=== PATIENT | female | born 1950 | race Caucasian/White ===

== ENCOUNTER → 2017-04-02 | Outpatient (CLI) | payer MEDICARE ==
--- NOTE | 2017-04-02 08:59 | BD ---
EXAMINATION TYPE: MG DEXA axial skeleton. DATE OF EXAM: 04/02/2017 COMPARISON: NONE CLINICAL HISTORY: 66-year-old female asymptomatic postmenopausal screening Height: 67.2 IN Weight: 201 LBS FRAX RISK QUESTIONS: Alcohol (3 or more units per day): NO Family History (Parent hip fracture): NO Glucocorticoids (More than 3mos): NO (Ex: prednisone, prednisolone, methylprednisolone, dexamethasone, and hydrocortisone). History of Fracture in Adulthood: NO Secondary Osteoporosis: 1. Type 1 Diabetes: NO 2. Hyperthyroidism: NO 3. Menopause before 45: NO 4. Malnutrition: NO 5. Chronic liver disease: NO Rheumatoid Arthritis: NO Current Tobacco Use: NO RISK FACTORS HISTORY OF: Active: YES Postmenopausal woman: AGE 53 MEDICATIONS: Thyroid Medications: YES Which medication: Levothyroxine How Lon YEARS Additional Medications: LEVOTHYROXINE, BLOOD PRESSURE MEDS EXAM MEASUREMENTS: Bone mineral densitometry was performed using the [employer] System. Bone mineral density as measured about the Lumbar spine is: ----- L1-L4(G/cm2): 1.249 T Score Values are as follows: ----- L2: 1.1 ----- L3: 1.2 ----- L4: 0.7 ----- L1-L4: 0.6 Bone mineral density BASELINE Bone mineral density about the R hip (g/cm2): 0.851 Bone mineral density about the L hip (g/cm2): 0.856 T Score values are as follows: -----R Neck: -1.3 -----L Neck: -1.3 -----R Total: -0.6 -----L Total: -0.2 Bone mineral density BASELINE IMPRESSION: Osteopenia (T Score between -2.5 and -1 as noted by T score values in both hips). There is slightly increased risk of fracture and the patient may be considered for treatment. Re-Scre en 2-5 years. NOTE: T-SCORE=SD OF THE YOUNG ADULT MEAN.
--- NOTE | 2017-04-03 07:27 | MM ---
Reason for exam: screening (asymptomatic). Last mammogram was performed 16 years and 4 months ago. History: Patient is postmenopausal and had first child after 29. Physical Findings: A clinical breast exam by your physician is recommended on an annual basis and results should be correlated with mammographic findings. MG 3D Screening Mammo W/Cad Bilateral CC and MLO view(s) were taken. No prior studies available for comparison. There are scattered fibroglandular densities. There is no discrete abnormality. ASSESSMENT: Negative, BI-RAD 1 RECOMMENDATION: Routine screening mammogram of both breasts in 1 year.
== END | disposition home or self-care (01) ==
LOC: RADMAMWWP 07:33
PROVIDERS: ATTEND Internal Medicine
DX: Z12.31 Encounter for screening mammogram for malignant neoplasm of breast (principal); M85.80 Other specified disorders of bone density and structure, unspecified site; Z78.0 Asymptomatic menopausal state
CPT/HCPCS: 77080; 77063; G0202

== ENCOUNTER → 2019-05-23 | Outpatient (CLI) | payer MEDICARE ==
--- NOTE | 2019-05-26 13:14 | MM ---
Reason for exam: screening (asymptomatic). Last mammogram was performed 2 years and 2 months ago. History: Patient is postmenopausal and had first child after 29. Physical Findings: A clinical breast exam by your physician is recommended on an annual basis and results should be correlated with mammographic findings. MG 3D Screening Mammo W/Cad Bilateral CC and MLO view(s) were taken. Prior study comparison: April 02, 2017, bilateral MG 3d screening mammo w/cad. December 10, 2000, bilateral screening mammogram. There are scattered fibroglandular densities. No suspicious abnormality on the left breast. Right latereal middle depth asymmetry on CC 3D 48/79. ASSESSMENT: Incomplete: need additional imaging evaluation, BI-RAD 0 RECOMMENDATION: Special view mammogram of the right breast. If lesion persists on supplemental views, image directed ultrasound is recommended. [facility] will attempt to contact patient to return for supplemental views and ultrasound if indicated.
== END ==
LOC: RADMAMWWP 07:31
PROVIDERS: ATTEND Internal Medicine
DX: Z12.31 Encounter for screening mammogram for malignant neoplasm of breast (principal); R92.8 Other abnormal and inconclusive findings on diagnostic imaging of breast
CPT/HCPCS: 77063; 77067

== ENCOUNTER → 2019-06-04 | Outpatient (CLI) | payer MEDICARE ==
--- NOTE | 2019-06-05 13:11 | MM ---
Reason for exam: additional evaluation requested from abnormal screening. Last mammogram was performed less than 1 month ago. History: Patient is postmenopausal and had first child after 29. Physical Findings: Nurse did not find any significant physical abnormalities on exam. MG 3D Work Up W/Cad RT Spot compression CC and ML view(s) were taken of the right breast. Prior study comparison: May 23, 2019, bilateral MG 3d screening mammo w/cad. April 02, 2017, bilateral MG 3d screening mammo w/cad. There are scattered fibroglandular densities. A more subtle distortion remains on compression 36/70, ultrasound for additional work up 6cm from nipple. These results were verbally communicated with the patient and result sheet given to the patient on 06/04/19. ASSESSMENT: Incomplete: need additional imaging evaluation, BI-RAD 0 RECOMMENDATION: Ultrasound of the right breast.
--- NOTE | 2019-06-05 13:12 | USB ---
Reason for exam: additional evaluation requested from abnormal screening. History: Patient is postmenopausal and had first child after 29. US Breast Workup Limited RT Right limited breast ultrasound including focal area of concern, retroareolar and axilla demonstrates no cystic or solid lesion seen. These results were verbally communicated with the patient and result sheet given to the patient on 06/04/19. ASSESSMENT: Probably benign, BI-RAD 3 RECOMMENDATION: Follow-up diagnostic mammogram of the right breast in 3 months. (3D with compression)
== END | disposition home or self-care (01) ==
LOC: RADMAMWWP 14:52
PROVIDERS: ATTEND Internal Medicine
DX: R92.8 Other abnormal and inconclusive findings on diagnostic imaging of breast (principal)
CPT/HCPCS: 77065; 76642; G0279; 77061

== ENCOUNTER → 2019-11-19 | Outpatient (CLI) | payer MEDICARE ==
--- NOTE | 2019-11-19 11:34 | MM ---
Reason for exam: follow-up at short interval from prior study. Last mammogram was performed 6 months ago. History: Patient is postmenopausal and had first child after 29. Physical Findings: Nurse did not find any significant physical abnormalities on exam. MG 3D Diag Mammo W/Cad RT CC and MLO view(s) were taken of the right breast. Prior study comparison: June 04, 2019, right breast MG 3d work up w/cad RT. May 23, 2019, bilateral MG 3d screening mammo w/cad. The breast tissue is heterogeneously dense. This may lower the sensitivity of mammography. Distortion upper outer quadrant right breast 7cm from nipple. These results were verbally communicated with the patient and result sheet given to the patient on 11/19/19. ASSESSMENT: Incomplete: need additional imaging evaluation, BI-RAD 0 RECOMMENDATION: Ultrasound of the right breast.
--- NOTE | 2019-11-19 11:37 | USB ---
Reason for exam: additional evaluation requested from abnormal screening. History: Patient is postmenopausal and had first child after 29. US Breast Limited RT Right limited breast ultrasound including focal area of concern, retroareolar and axilla demonstrates a 5 x 2 x 4mm oval, hypoechoic lesion at 10 o'clock and a 4 x 2 x 4mm oval, cystic lesion at 11 o'clock. Biopsy recommended of area of distortion on mammography recommended via 3D technology. These results were verbally communicated with the patient and result sheet given to the patient on 11/19/19. ASSESSMENT: Suspicious, BI-RAD 4 RECOMMENDATION: Stereotactic core biopsy of the right breast. (3D) Called Dr. Dutton's office with mammographic findings. PRELIMINARY REPORT CALLED AND FAXED TO DR. DUTTON ON 11/19/19.
== END | disposition home or self-care (01) ==
LOC: RADMAMWWP 07:29
PROVIDERS: ATTEND Internal Medicine
DX: R92.8 Other abnormal and inconclusive findings on diagnostic imaging of breast (principal)
CPT/HCPCS: 77065; 76642; G0279; 77061

== ENCOUNTER → 2019-12-02 | Outpatient (CLI) | payer MEDICARE ==
--- NOTE | 2019-12-02 18:56 | BD ---
EXAMINATION TYPE: Axial Bone Density DATE OF EXAM: 12/02/2019 COMPARISON: NONE CLINICAL HISTORY: Height: 67 Weight: 191.3 FRAX RISK QUESTIONS: Alcohol (3 or more units per day): no Family History (Parent hip fracture): no Glucocorticoids (More than 3mos): no (Ex: prednisone, prednisolone, methylprednisolone, dexamethasone, and hydrocortisone). History of Fracture in Adulthood: no Secondary Osteoporosis: 1. Type 1 Diabetes: no 2. Hyperthyroidism: no 3. Menopause before 45: no 4. Malnutrition: no 5. Chronic liver disease: no Rheumatoid Arthritis: no Current Tobacco Use: no RISK FACTORS HISTORY OF: Active: yes Postmenopausal woman: age 53 MEDICATIONS: blood pressure meds Thyroid Medications: levothyroxine How Lon years Additional History: EXAM MEASUREMENTS: Bone mineral densitometry was performed using the [employer] System. Bone mineral density as measured about the Lumbar spine is: ----- L1-L4(G/cm2): 1.247 T Score Values are as follows: ----- L2: 0.9 ----- L3: 1.3 ----- L4: 0.8 ----- L1-L4: 0.6 Bone mineral density has: decreased -0.3 % since study of: 04.02.2017 Bone mineral density about the R hip (g/cm2): 0.859 Bone mineral density about the L hip (g/cm2): 0.833 T Score values are as follows: -----R Neck: -1.3 -----L Neck: -1.5 -----R Total: -0.3 -----L Total: -0.7 Bone mineral density has: decreased -1.6 % since study of: 04.02.2017 IMPRESSION: Osteopenia (T Score between -2.5 and -1). There is slightly increased risk of fracture and the patient may be considered for treatment. Re-Screen 2-5 years. NOTE: T-SCORE=SD OF THE YOUNG ADULT MEAN.
== END | disposition home or self-care (01) ==
LOC: RADBDWWP 07:48
PROVIDERS: ATTEND Internal Medicine
DX: M85.80 Other specified disorders of bone density and structure, unspecified site (principal)
CPT/HCPCS: 77080

== ENCOUNTER 2019-12-10 14:18 | Inpatient (IN) | payer MEDICARE ==
[2019-12-10] MEDS ORDERED: ASPIRIN 81 MG PO STA (14:31)
--- NOTE | 2019-12-10 14:33 | ED ---
Chest Pain HPI <Franco Davidson - Last Filed: 12/10/19 14:48> - General Source: patient, RN notes reviewed Mode of arrival: ambulatory Limitations: no limitations <Isaias Araujo - Last Filed: 12/10/19 14:50> - General Chief Complaint: Chest Pain Stated Complaint: Chest pain Time Seen by Provider: 12/10/19 14:24 - History of Present Illness Initial Comments: 69-year-old female presents emergency Department with chief complaint of intermittent chest pain or shortness of breath. Patient states she's been having episodes where she gets substernal chest pain he comes of a tingly all over and short of breath. She states that the episode today lasted 45 minutes. Patient contacted her primary care physician Dr. Grande who recommended come emergency department to rule out PE. Patient has no history DVT or PE no leg pain no leg swelling. Denies any current symptoms including chest pain or short ness of breath but she's been having more frequent episodes. Patient denies any fever, Chills no cough or chest congestion. She does have a history of hypertension. (Isaias Araujo) - Related Data Previous Rx's Medication Instructions Recorded Ondansetron [Zofran ODT] 4 mg PO Q8HR #12 tab 10/10/15 Allergies Allergy/AdvReac Type Severity Reaction Status Date / Time No Known Allergies Allergy Verified 12/10/19 14:20 Review of Systems ROS Other: All systems not noted in ROS Statement are negative. <Franco Davidson - Last Filed: 12/10/19 14:48> ROS Other: All systems not noted in ROS Statement are negative. <Isaias Araujo - Last Filed: 12/10/19 14:50> ROS Statement: Those systems with pertinent positive or pertinent negative responses have been documented in the HPI. EKG Findings - EKG Comments: EKG Findings:: EKG performed at 14:33 showing acute MA with elevation in V1 and V2 with inferior reciprocal T-wave inversion rate of 77 MD 160 QRS 90 QT status QTC 460/520 <Isaias Araujo - Last Filed: 12/10/19 14:50> Past Medical History Past Medical History: Hypertension, Thyroid Disorder History of Any Multi-Drug Resistant Organisms: None Reported Past Surgical History: Appendectomy, Section Additional Past Surgical History / Comment(s): BOWEL OBSTRUCTION Past Psychological History: No Psychological Hx Reported Smoking Status: Never smoker Past Alcohol Use History: Occasional Past Drug Use History: None Reported <Isaias Araujo - Last Filed: 12/10/19 14:50> General Exam Limitations: no limitations General appearance: alert, in no apparent distress Head exam: Present: atraumatic, normocephalic, normal inspection Eye exam: Present: normal appearance, PERRL, EOMI. Absent: scleral icterus, conjunctival injection, periorbital swelling ENT exam: Present: normal exam, normal oropharynx, mucous membranes moist Neck exam: Present: normal inspection, full ROM. Absent: tenderness, meningismus, lymphadenopathy Respiratory exam: Present: normal lung sounds bilaterally. Absent: respiratory distress, wheezes, rales, rhonchi, stridor Cardiovascular Exam: Present: regular rate, normal rhythm, normal heart sounds. Absent: systolic murmur, diastolic murmur, rubs, gallop, clicks GI/Abdominal exam: Present: soft, normal bowel sounds. Absent: distended, tenderness, guarding, rebound, rigid Back exam: Absent: CVA tenderness (R), CVA tenderness (L) Neurological exam: Present: alert, oriented X3 Skin exam: Present: warm, dry, intact, normal color. Absent: rash <Isaias Araujo - Last Filed: 12/10/19 14:50> Course Vital Signs 12/10/19 14:21 Temperature 97.9 F Pulse Rate 86 Respiratory 16 Rate Blood Pressure 121/83 O2 Sat by Pulse 99 Oximetry Chest Pain [place] <Franco Davidson - Last Filed: 12/10/19 14:48> - [place] IEmmanuel, personally saw and examined the patient. I have reviewed and agree with the PA findings, including all diagnostic interpretations and treatment plans as written unless otherwise stated. I was present for the [place] portions of any procedures performed and the inclusive time noted for any critical care statement. I spoke with Dr. Buenrostro he agreed the patient needed to go to [facility] make those a rrangements immediately (Franco Davidson) Critical Care Time Critical Care Time: Yes Total Critical Care Time: 35 <Isaias Araujo - Last Filed: 12/10/19 14:50> Critical Care Time: Total 30 minutes of critical care time initially evaluated . Past medical history, according labs, EKG EKG showed evidence of acute MA. STEMI was paged at this time case discussed with Dr. Buenrostro in which the patient will be taken to the [facility]. Patient was started on heparin, aspirin, nitro and Lipitor. (Isaias Araujo) Disposition <Franco Davidson - Last Filed: 12/10/19 14:48> <Isaias Araujo - Last Filed: 12/10/19 14:50> Clinical Impression: ST elevation myocardial infarction (STEMI) Disposition: ADMITTED IP TO THIS HOSP Condition: Serious
[2019-12-10] MEDS ORDERED: HEPARIN SODIUM,PORCINE 5,000 UNIT/ML 1 ML VIAL IV PRN (14:39)
[2019-12-10] MEDS ORDERED: ATORVASTATIN 80 MG TAB PO STA (14:39)
[2019-12-10] MEDS ORDERED: HEPARIN SODIUM,PORCINE 5,000 UNIT/ML 1 ML VIAL IV ONE (14:39)
[2019-12-10] MEDS ORDERED: NITROGLYCERIN SL TABS 0.4 MG TAB SUBLINGUAL PRN ×2 (14:40→16:08)
[2019-12-10] MEDS ORDERED: NITROGLYCERIN OINT 1 INCH/GM PACKET TOPICAL STA (14:43)
[2019-12-10] MEDS ORDERED: HEPARIN SOD,PORK IN 0.45% NACL 25,000 UNIT in 0.45% NACL 1 250ML.BAG IV SCH (14:45)
[2019-12-10] MEDS ORDERED: LIDOCAINE 1% INJ 10MG/ML (20 ML MDV) ONE (14:52)
[2019-12-10 14:58] LABS: Basophils # (A) 0.1 k/uL (0-0.2); Basophils % (A) 1 %; Eosinophils # (A) 0.2 k/uL (0-0.7); Eosinophils % (A) 2 %; HCT 44.4 % (34.0-46.0); HGB 15.2 gm/dL (11.4-16.0); Lymphocytes # (A) 1.5 k/uL (1.0-4.8); Lymphocytes % (A) 15 %; MCHC 34.2 g/dL (31.0-37.0); MCV 87.9 fL (80.0-100.0); Monocytes # (A) 0.5 k/uL (0-1.0); Monocytes % (A) 5 %; Neutrophils # (A) 7.5 k/uL (1.3-7.7); Neutrophils % (A) 77 %; Platelet Count 258 k/uL (150-450); RBC 5.05 m/uL (3.80-5.40); WBC 9.7 k/uL (3.8-10.6)
[2019-12-10] MEDS ORDERED: IV FLUID CONTINUATION 1,000 ML IV ONE (15:02)
[2019-12-10 15:07] LABS: Albumin 4.3 g/dL (3.5-5.0); Calcium 9.7 mg/dL (8.4-10.2); Magnesium 1.8 mg/dL (1.6-2.3); Potassium 3.7 mmol/L (3.5-5.1); Total Bilirubin 1.6 mg/dL (0.2-1.3); Total Protein 7.3 g/dL (6.3-8.2)
[2019-12-10] MEDS ORDERED: MIDAZOLAM 2 MG/2 ML VIAL IVP ONE (15:13)
[2019-12-10] MEDS ORDERED: LIDOCAINE 1% INJ 10MG/ML (20 ML MDV) SQ ONE (15:14)
[2019-12-10] MEDS ORDERED: fentaNYL (PF) 50 MCG/ML 2 ML AMP ONE (15:15)
[2019-12-10] MEDS ORDERED: fentaNYL (PF) 50 MCG/ML 2 ML AMP IVP ONE (15:16)
[2019-12-10 15:20] LABS: D-Dimer 0.65 mg/L FEU (<0.60); INR 0.9 (<1.2); Partial Thromboplastin Time 22.4 sec (22.0-30.0); Prothrombin Time 9.7 sec (9.0-12.0)
[2019-12-10] MEDS ORDERED: BIVALIRUDIN BOLUS 250 MG/50 ML IV ONE (15:20)
[2019-12-10] MEDS ORDERED: CLOPIDOGREL 75 MG TAB ONE (15:20)
[2019-12-10] MEDS ORDERED: BIVALIRUDIN 250 MG in SODIUM CHLORIDE 0.9% 50 ML IV ONE (15:21)
[2019-12-10] MEDS ORDERED: CLOPIDOGREL 75 MG TAB PO ONE (15:22)
[2019-12-10 15:29] LABS: Creatine Kinase MB 22.9 ng/mL (0.0-2.4)
[2019-12-10 15:36] LABS: Troponin I 8.23 ng/mL (0.000-0.034)
[2019-12-10] MEDS ORDERED: IOPAMIDOL-370 100ML BTL INJ ONE (15:42)
[2019-12-10] MEDS ORDERED: ZOLPIDEM 5 MG TAB PO PRN (16:08)
[2019-12-10] MEDS ORDERED: MAG HYDROX/AL HYDROX/SIMETH 30 ML CUP PO PRN (16:08)
[2019-12-10] MEDS ORDERED: RX INFO: IV CONTRAST WAS GIVEN 1 EACH MISC MISCELLANE PRN (16:08)
[2019-12-10] MEDS ORDERED: ATROPINE SULFATE 0.1 MG/ML 10ML SYRINGE IV PRN (16:08)
--- NOTE | 2019-12-10 16:14 | P.CRDCN ---
History of Present Illness Consult date: 12/10/19 Chief complaint: Chest pain History of present illness: This is a very pleasant 69-year-old female patient with a past medical history significant for hypertension presented to the emergency department complaining of chest discomfort. She was in her usual state of health at about 3 days ago when she started experiencing chest discomfort intermittently. She describes her discomfort as a pressure across the chest without any radiation to the arms or neck or shoulders, but it was associated with shortness of breath. No sweating. No dizziness or lightheadedness or syncope. The last episode was earlier today which was more intense and because of that she decided to come to the emergency department. The EKG in the ER revealed sinus rhythm with ST segment elevation in the anteroseptal leads. Because of that an emergent heart catheterization was advised. 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 She underwent successful stenting of the ostial and proximal LAD with an excellent angiographic results and reduction of stenosis from 99% to 0% and without any complication. The patient tolerated the procedure very well. She was chest pain-free by the end of the procedure. She will be admitted to the intensive c are unit and she will be on dual antiplatelet therapy along with high intensity statin. She will be also on anti-ischemic medication on an echocardiogram will be ordered for tomorrow. Past Medical History Past Medical History: Hypertension, Thyroid Disorder History of Any Multi-Drug Resistant Organisms: None Reported Past Surgical History: Appendectomy, Section Additional Past Surgical History / Comment(s): BOWEL OBSTRUCTION Past Psychological History: No Psychological Hx Reported Smoking Status: Never smoker Past Alcohol Use History: Occasional Past Drug Use History: None Reported Medications and Allergies Home Medications Medication Instructions Recorded Confirmed Type Levothyroxine Sodium [Synthroid] 125 mcg PO SUTUWETHSA 12/10/19 12/10/19 History Levothyroxine Sodium [Synthroid] 187.5 mcg PO MOFR 12/10/19 12/10/19 History Triamterene-Hctz 37.5-25Mg 1 tab PO DAILY 12/10/19 12/10/19 History [Maxzide 37.5-25] amLODIPine [Norvasc] 10 mg PO DAILY 12/10/19 12/10/19 History Allergies Allergy/AdvReac Type Severity Reaction Status Date / Time No Known Allergies Allergy Verified 12/10/19 15:01 Physical Exam Vitals: Vital Signs Temp Pulse Resp BP Pulse Ox 12/10/19 14:50 94 18 141/70 98 12/10/19 14:40 98 12/10/19 14:21 97.9 F 86 16 121/83 99 Intake and Output 12/10/19 12/10/19 12/10/19 06:59 14:59 22:59 Intake Total 123 Balance 123 Intake: IV 123 Other: Weight 81.647 kg - Constitutional General appearance: no acute distress - Respiratory Respiratory: bilateral: diminished - Cardiovascular Rhythm: regular Heart sounds: normal: S1, S2 Results 12/10/19 14:42 12/10/19 14:42 Cardiac Enzymes 12/10/19 12/10/19 Range/Units 14:42 14:42 AST 82 H (14-36) U/L CK-MB (CK-2) 22.9 H (0.0-2.4) ng/mL Troponin I 8.230 H* (0.000-0.034) ng/mL Coagulation 12/10/19 Range/Units 14:42 PT 9.7 (9.0-12.0) sec APTT 22.4 (22.0-30.0) sec CBC 12/10/19 Range/Units 14:42 WBC 9.7 (3.8-10.6) k/uL RBC 5.05 (3.80-5.40) m/uL Hgb 15.2 (11.4-16.0) gm/dL Hct 44.4 (34.0-46.0) % Plt Count 258 (150-450) k/uL Comprehensive Metabolic Panel 12/10/19 Range/Units 14:42 Sodium 136 L (137-145) mmol/L Potassium 3.7 (3.5-5.1) mmol/L Chloride 99 (98-107) mmol/L Carbon Dioxide 27 (22-30) mmol/L BUN 22 H (7-17) mg/dL Creatinine 0.79 (0.52-1.04) mg/dL Glucose 180 H (74-99) mg/dL Calcium 9.7 (8.4-10.2) mg/dL AST 82 H (14-36) U/L ALT 22 (4-34) U/L Alkaline Phosphatase 65 (38-126) U/L Total Protein 7.3 (6.3-8.2) g/dL Albumin 4.3 (3.5-5.0) g/dL Current Medications Generic Name Dose Route Start Last Admin Trade Name Freq PRN Reason Stop Dose Admin Al Hydroxide/Mg Hydroxide 30 ml 12/10/19 16:08 Maalox PO Q4HR PRN Heartburn Aspirin 325 mg 12/11/19 09:00 Aspirin PO DAILY [facility] Atorvastatin Calcium 80 mg 12/10/19 21:00 Lipitor PO HS [facility] Atropine Sulfate 0.5 mg 12/10/19 16:08 Atropine IV ONCE PRN Symptomatic Bradycardia Clopidogrel Bisulfate 75 mg 12/11/19 16:09 Plavix PO DAILY [facility] Heparin Sodium (Porcine) 0 unit 12/10/19 14:39 Heparin IV PER PROTOCOL PRN Low PTT Protocol Heparin Sodium/Sodium Chloride 250 mls @ 9.798 mls/hr 12/10/19 14:45 25,000 unit/ Sodium Chloride IV .Q24H [facility] Protocol 12 UNITS/KG/HR Sodium Chloride 1,000 mls @ 75 mls/hr 12/10/19 16:15 Saline 0.9% IV 12/10/19 22:16 .[id number] [facility] Lisinopril 2.5 mg 12/11/19 09:00 Zestril PO DAILY [facility] Metoprolol Tartrate 12.5 mg 12/10/19 21:00 Lopressor PO BID [facility] Miscellaneous Information 1 each 12/10/19 16:08 Rx Info: Iv Contrast Was Given MISCELLANE 12/12/19 16:08 DAILY PRN Per Protocol Nitroglycerin 0.4 mg 12/10/19 14:40 Nitrostat SUBLINGUAL Q5M PRN Chest Pain Nitroglycerin 0.4 mg 12/10/19 16:08 Nitrostat SUBLINGUAL Q5M PRN Chest Pain Zolpidem Tartrate 5 mg 12/10/19 16:08 Ambien PO HS PRN Insomnia Intake and Output 12/10/19 12/10/19 12/10/19 06:59 14:59 22:59 Intake Total 123 Balance 123 Intake: IV 123 Other: Weight 81.647 kg Patient Weight 12/11/19 06:59 Weight 81.647 kg 12/10/19 14:42 12/10/19 14:42 Assessment and Plan Assessment: Assessment #[address] patient myocardial infarction #2 hypertension Plan #1 the patient underwent successful stenting of the ostial and proximal LAD #2 she will be on dual antiplatelet therapy along with high intensity statin #3 anti-ischemic medication including metoprolol as well as lisinopril #4 an echocardiogram was Doppler #5 ICU admission #6 standard to groin care #7 monitor for arrhythmia #8 follow-up with the patient Thank you for allowing us participate in her care and we'll continue following up with the patient
[2019-12-10 16:15] LABS: Glucose,Whole Blood 152 mg/dL (75-99)
[2019-12-10] MEDS ORDERED: SODIUM CHLORIDE 0.9% 1,000 ML IV SCH (16:15)
[2019-12-10] MEDS ORDERED: NALOXONE 0.4 MG/ML 1 ML VIAL IV PRN (17:44)
[2019-12-10] MEDS ORDERED: ONDANSETRON 4 MG/2 ML VIAL IVP PRN (17:44)
[2019-12-10] MEDS ORDERED: ACETAMINOPHEN TAB 325 MG TAB PO PRN (17:44)
[2019-12-10] MEDS ORDERED: bisacodyL 5 MG TABLET.DR PO PRN (17:44)
[2019-12-10] MEDS ORDERED: MELATONIN 3 MG TABLET PO PRN (17:44)
--- NOTE | 2019-12-10 17:44 | P.HPIM ---
History of Present Illness H&P Date: 12/10/19 Chief Complaint: Chest Patient is a 69-year-old female with a past medical history of high blood pressure, hypothyroidism, and obesity who presented to the hospital at direction of her primary care physician due to numbness and tingling in her arm and shortness of breath. On arrival to the ER she was noted to have ST segment elevation and a code STEMI was called. She was taken directly from the ER to the laborer pole crew and underwent successful stenting of critical lesion in the LAD. She was noted to have a troponin of 8, her laboratory analysis was otherwise unremarkable. She was started on aspirin, Plavix, lisinopril, and Lipitor. She is admitted to the ICU for further monitoring. Patient seen and examined at bedside. She reports that she went for a breast biopsy on 12/03 secondary to an abnormal mammogram. While there she had a syncopal episode. Later on she developed some left-sided chest pain associated with numbness and tingling into her left arm. Since that time she has had maybe 1-2 other incidents. Today she was out in the yard working, and taking the trash cans to the street. When she returned back and side she felt winded, had numbness and tingling down into her left arm and now this time up into her jaw and face. This was associated with some diaphoresis. She called her primary care physician who told her to proceed to the emergency department. She reports that her father had history of coronary artery disease past away at age 68 and for started having heart problems in his 40s. Her mother also had a history of heart disease and was hospitalized once for heart related concerns. Review of Systems Pertinent positives and negatives as discussed in HPI, a complete review of systems was performed and all other systems are negative. Past Medical History Past Medical History: Hypertension, Thyroid Disorder History of Any Multi-Drug Resistant Organisms: None Reported Past Surgical History: Appendectomy, Section Additional Past Surgical History / Comment(s): BOWEL RESSECTION WITH APPENDICITIS Past Psychological History: No Psychological Hx Reported Smoking Status: Former smoker Past Alcohol Use History: Occasional Past Drug Use History: None Reported Additional History: No cane or walker. 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 - Past Family History Father Family Medical History: Coronary Artery Disease (CAD) Mother Additional Family Medical History / Comment(s): heart disease Medications and Allergies Home Medications Medication Instructions Recorded Confirmed Type Levothyroxine Sodium [Synthroid] 125 mcg PO MOTUWETHFR 12/10/19 12/10/19 History Levothyroxine Sodium [Synthroid] 187.5 mcg PO SUSA 12/10/19 12/10/19 History Triamterene-Hctz 37.5-25Mg 1 tab PO DAILY 12/10/19 12/10/19 History [Maxzide 37.5-25] amLODIPine [Norvasc] 10 mg PO DAILY 12/10/19 12/10/19 History Allergies Allergy/AdvReac Type Severity Reaction Status Date / Time No Known Allergies Allergy Verified 12/10/19 15:01 Physical Exam Osteopathic Statement: *. No significant issues noted on an osteopathic structural exam other than those noted in the History and Physical/Consult. Vitals: Vital Signs Temp Pulse Resp BP Pulse Ox 12/10/19 16:06 98.3 F 71 16 124/67 95 12/10/19 14:50 94 18 141/70 98 12/10/19 14:40 98 12/10/19 14:21 97.9 F 86 16 121/83 99 Intake and Output 12/10/19 12/10/19 12/10/19 06:59 14:59 22:59 Intake Total 198 Output Total 0 Balance 198 Intake: IV 198 Sodium Chloride 0.9% 1, 75 000 ml @ 75 mls/hr IV . [id number] [facility] Rx#:[id number] Output: Urine 0 Other: # Voids 0 Weight 81.647 kg General: non toxic, no distress, appears at stated age, Obese Derm: no unusual rashes/lesions no unusual ecchymoses, warm, dry Head: atraumatic, normocephalic, symmetric Eyes: EOMI, no lid lag, anicteric sclera, pupils equal round reactive to light ENT: Nose and ears atraumatic, no thrush, no pharyngeal erythema Neck: No thyromegaly, no cervical lymphadenopathy, trachea midline, supple Mouth: no lip lesion, mucus membranes moist Cardiovascular: S1S2 reg, no murmur, positive posterior tibial pulse bilateral, no edema, capillary refill less than 2 seconds Lungs: CTA bilateral, no rhonchi, no rales , no accessory muscle use Abdominal: soft, nontender to palpation, no guarding, no appreciable organomegaly, normal bowel sounds Ext: no gross muscle atrophy, muscle strength 5 out of 5 in upper extremities grossly, no contractures, Neuro: CN II-XI grossly intact, light touch intact all 4 extremities, finger to nose within normal limits, Psych: Alert, oriented, appropriate affect Results CBC & Chem 7: 12/10/19 14:42 12/10/19 14:42 Labs: Abnormal Lab Results - Last 24 Hours (Table) 12/10/19 12/10/19 12/10/19 Range/Units 14:42 14:42 14:42 D-Dimer 0.65 H (<0.60) mg/L FEU Sodium 136 L (137-145) mmol/L BUN 22 H (7-17) mg/dL Glucose 180 H (74-99) mg/dL POC Glucose (mg/dL) (75-99) mg/dL Total Bilirubin 1.6 H (0.2-1.3) mg/dL AST 82 H (14-36) U/L Total Creatine Kinase 383 H (30-135) U/L CK-MB (CK-2) 22.9 H (0.0-2.4) ng/mL Troponin I 8.230 H* (0.000-0.034) ng/mL 12/10/19 Range/Units 16:12 D-Dimer (<0.60) mg/L FEU Sodium (137-145) mmol/L BUN (7-17) mg/dL Glucose (74-99) mg/dL POC Glucose (mg/dL) 152 H (75-99) mg/dL Total Bilirubin (0.2-1.3) mg/dL AST (14-36) U/L Total Creatine Kinase (30-135) U/L CK-MB (CK-2) (0.0-2.4) ng/mL Troponin I (0.000-0.034) ng/mL Chest x-ray: report reviewed Thrombosis Risk Factor Assmnt - DVT/VTE Prophylaxis DVT/VTE Prophylaxis: Mechanical Prophylaxis ordered - Choose All That Apply Each Factor Represents 1 point: Acute [place], Obesity (BMI >25) Each Risk Factor Represents 2 Points: Age 61-74 years Thrombosis Risk Factor Assessment Total Risk Factor Score: 4 Thrombosis Risk Factor Assessment Level: Moderate Risk Assessment and Plan Assessment: Acute ST segment elevated myocardial infarction status post successful stenting of the LAD -Aspirin, Lipitor, Plavix, lisinopril, Lopressor -Echo in a.m. -Telemetry -Cardiology recommendations -Check lipid profile in a.m. Hypertension, controlled -Continue with lisinopril and Lopressor -Hold home triamterene hydrochlorothiazide and Norvasc -Follow blood pressures Hypothyroidism -Synthroid Obesity with BMI 28.2 -Outpatient structured weight loss The patient is admitted with an anticipated greater than 2 midnight stay for evaluation of STEMI. Surrogate decision-maker: CODE STATUS:Full DVT prophylaxis: SCDs Discussed with: Patient, nursing, Anticipated discharge date: 2-[address]: Home A total of 65 minutes was spent on the care of this complex patient more than 50% of the time was spent in counseling and care coordination.
[2019-12-10] MEDS: METOPROLOL TARTRATE 12.5 MG TAB PO SCH (19:54)
--- NOTE | 2019-12-10 22:42 | CC ---
CARDIAC CATHETERIZATION REPORT DATE OF SERVICE: 12/10/2019 PERFORMING PHYSICIAN: Gadiel Buenrostro M.D. PROCEDURES PERFORMED: 1. Selective right and left coronary angiogram. 2. Successful stenting of the ostial and proximal left anterior descending artery using a 2.5 x 15 mm Xience drug-eluting stent with an excellent angiographic result and reduction of stenosis from 99% to 0%. 3. Left heart catheterization. INDICATION: This is a 69-year-old female patient with hypertension who presented to the hospital with chest discomfort that was intermittent for the last few days. The EKG showed concerning finding of acute ST-elevation myocardial infarction in the anteroseptal leads. As a matter of fact, the patient does have also what seems to be QS pattern on the EKG. APPROACH: Right common femoral artery. COMPLICATIONS: None. LEVEL OF SEDATION: Moderate, with sedation length of 25 minutes. PROCEDURE DESCRIPTION: After obtaining informed consent, the patient was brought to the cardiac sleep lab technologist. The right common femoral artery was cannulated using micropuncture technique. The micropuncture wire passed easily. Then I placed a 6-Hungarian sheath. I did selective right and left coronary angiogram using JR4 and JL4 catheters. I did selective left coronary angiogram using JL4 guide. I did after that intervene on the LAD. Please see separate paragraph for that. Subsequently left heart catheterization was performed using 6-Hungarian pigtail catheter. The procedure was completed without any complication. SELECTIVE CORONARY ANGIOGRAM: 1. The right coronary artery is a large-caliber vessel and it is a dominant vessel. The RCA is angiographically normal. The RCA distally bifurcates into PDA and PLV branches, and both appeared to be angiographically normal. 2. The left main is angiographically normal. It bifurcates into LCX and LAD. 3. The LCX is a large-caliber vessel and it is a nondominant vessel. The proximal LCX is angiographically normal and gives rise to a large first obtuse marginal branch which trifurcates into 3 sub branches, and all appeared to be angiographically normal. The left circumflex continues after that as a small-caliber vessel in the AV groove. 4. The LAD. The ostial LAD right from the left main has a lesion that appeared to be in the range of 99.9%. The mid and distal LAD appeared to be angiographically normal. PERCUTANEOUS CORONARY INTERVENTION OF THE LEFT ANTERIOR DESCENDING CORONARY ARTERY: Anticoagulation was initiated using Angiomax. Subsequently I did engage the left main using JL4 guide. I did wire the LAD using a Whisper wire. After that I did balloon angioplasty initially using a 2.0 x 12 mm balloon, but because the balloon was slipping forward, I used a 2.5 x 10 mm AngioSculpt balloon and I did I did PTCA of the ostial LAD using the balloon which was inflated under 14 atmospheres for 20 seconds. Subsequently I deployed a 2.5 x 15 mm Xience JIL where the stent was positioned under fluoroscopic guidance and deployed under 14 atmospheres for 20 seconds. The following angiogram showed excellent angiographic results and the procedure was completed without any complication. HEMODYNAMICS: The LVEDP was about 8 mmHg, and there was no gradient across the aortic valve. CONCLUSION: 1. Probably subacute ST-elevation myocardial infarction anteriorly. 2. Critical disease involving the ostial left anterior descending artery. 3. Successful stenting of the ostial and proximal LAD using 2.5 x 15 mm Xience JIL with an excellent angiographic result. 4. Mild disease involving the left circumflex coronary artery. 5. Mild disease involving the right coronary artery. 6. Normal left ventricular end-diastolic pressure. POST-PROCEDURE MANAGEMENT: 1. Dual anti-platelet therapy. 2. Risk factor modifications. 3. Follow up with the patient. MMODL / IJN: [id number] /
[2019-12-11 05:12] LABS: HCT 40.8 % (34.0-46.0); MCH 29.8 pg (25.0-35.0); MCHC 34.2 g/dL (31.0-37.0); MCV 87.2 fL (80.0-100.0); Mean Platelet Volume 7.7; Platelet Count 232 k/uL (150-450); RBC 4.68 m/uL (3.80-5.40); RDW 13.1 % (11.5-15.5); WBC 8.9 k/uL (3.8-10.6)
[2019-12-11 05:20] LABS: African American GFR (CKD) >90 (>60 ml/min/1.73 sqM); Anion Gap 5 mmol/L; Blood Urea Nitrogen 15 mg/dL (7-17); Carbon Dioxide 28 mmol/L (22-30); Chloride 104 mmol/L (98-107); Cholesterol 163 mg/dL (<200); Glucose 101 mg/dL (74-99); HDL Cholesterol 39 mg/dL (40-60); LDL Cholesterol,Calculated 89 mg/dL (0-99); Magnesium 1.9 mg/dL (1.6-2.3); Non-African American GFR(CKD) 89 (>60 ml/min/1.73 sqM); Potassium 3.8 mmol/L (3.5-5.1); Sodium 137 mmol/L (137-145); Triglycerides 175 mg/dL (<150)
[2019-12-11] MEDS ORDERED: Potassium Replacement Protocol 1 EACH MISC MISCELLANE PRN (05:32)
[2019-12-11] MEDS ORDERED: POTASSIUM CHLORIDE ER 20 MEQ TAB.ER PO SCH (06:00)
[2019-12-11] MEDS: LEVOTHYROXINE 125 MCG TAB PO SCH (06:27)
--- NOTE | 2019-12-11 07:46 | P.CRDCN ---
History of Present Illness History of present illness: Patient interviewed and examined today She came in yesterday with chest discomfort midsternal radiating to the jaw and to the left arm She was seen in the ER Dr. Emmanuel Davidson and Isaias Araujo and sent to the Band Machine Operator directly This morning the patient is doing well. She has no chest discomfort no dizziness lightheadedness did not pressure was she looks very comfortable she feels well On more questioning she started experiencing these symptoms for several weeks but these were brief minor episodes. Last week at [facility] where she is getting a breast biopsy she had a similar episode and she actually passed out at that time. This time she did not have any loss of consciousness Radio blood pressure is 100 30 45 mmHg pulse rate is 60 beats a minute afebrile 98.3F Breath sounds are clear no rhonchi no crackles Heart sounds are normal normal S1 normal S2 no murmurs or gallops no rub Breath sounds are clear no rhonchi no crackle Extremities warm no edema Impression acute anterior wall ME with an ostial LAD stenosis of 99% Mild disease of the left circumflex and RCA Hypertension She stopped smoking 30 years back Peak troponin 32 Suggest Continue dual antiplatelet therapy, aspirin 81 mg daily along with Plavix Atorvastatin 80 mg daily Beta blockers and mehnaz inhibitors I discussed this with the nurse and the patient may go up to the third floor Past Medical History Past Medical History: Hypertension, Thyroid Disorder History of Any Multi-Drug Resistant Organisms: None Reported Past Surgical History: Appendectomy, Section Additional Past Surgical History / Comment(s): BOWEL RESSECTION WITH APPENDICITIS Past Psychological History: No Psychological Hx Reported Smoking Status: Former smoker Past Alcohol Use History: Occasional Past Drug Use History: None Reported - Past Family History Father Family Medical History: Coronary Artery Disease (CAD) Mother Additional Family Medical History / Comment(s): heart disease Medications and Allergies Home Medications Medication Instructions Recorded Confirmed Type Levothyroxine Sodium [Synthroid] 125 mcg PO MOTUWETHFR 12/10/19 12/10/19 History Levothyroxine Sodium [Synthroid] 187.5 mcg PO SUSA 12/10/19 12/10/19 History Triamterene-Hctz 37.5-25Mg 1 tab PO DAILY 12/10/19 12/10/19 History [Maxzide 37.5-25] amLODIPine [Norvasc] 10 mg PO DAILY 12/10/19 12/10/19 History Allergies Allergy/AdvReac Type Severity Reaction Status Date / Time No Known Allergies Allergy Verified 12/10/19 15:01 Physical Exam Vitals: Vital Signs Temp Pulse Resp BP Pulse Ox 12/11/19 07:00 66 15 115/52 93 L 12/11/19 06:00 66 15 106/49 92 L 12/11/19 05:00 61 14 98/48 94 L 12/11/19 04:00 98.3 F 62 19 103/45 94 L 12/11/19 03:00 64 18 106/64 94 L 12/11/19 02:00 66 20 108/57 94 L 12/11/19 01:00 63 14 107/56 91 L 12/11/19 00:00 98.5 F 65 18 120/65 94 L 12/10/19 23:00 68 18 116/55 96 12/10/19 22:00 68 15 115/60 95 12/10/19 21:00 64 20 125/60 96 12/10/19 20:00 98.6 F 71 16 125/60 98 12/10/19 19:00 73 14 116/69 96 12/10/19 18:00 69 14 127/80 97 12/10/19 17:00 83 24 128/64 96 12/10/19 16:06 98.3 F 71 16 124/67 95 12/10/19 14:50 94 18 141/70 98 12/10/19 14:40 96 12/10/19 14:21 97.9 F 86 16 121/83 99 Intake and Output 12/10/19 12/11/19 12/11/19 22:59 06:59 14:59 Intake Total 648 150 Output Total 0 600 0 Balance 648 -450 0 Intake: IV 648 150 Sodium Chloride 0.9% 1, 525 150 000 ml @ 75 mls/hr IV . [id number] [facility] Rx#:[id number] Output: Urine 0 600 0 Other: # Voids 0 1 Weight 83.9 kg Results 12/11/19 04:48 12/11/19 04:36 Cardiac Enzymes 12/10/19 12/10/19 12/10/19 Range/Units 14:42 14:42 17:59 AST 82 H (14-36) U/L CK-MB (CK-2) 22.9 H (0.0-2.4) ng/mL Troponin I 8.230 H* 30.600 H* (0.000-0.034) ng/mL 12/10/19 Range/Units 20:41 AST (14-36) U/L CK-MB (CK-2) (0.0-2.4) ng/mL Troponin I 32.600 H* (0.000-0.034) ng/mL Coagulation 12/10/19 Range/Units 14:42 PT 9.7 (9.0-12.0) sec APTT 22.4 (22.0-30.0) sec Lipids 12/11/19 Range/Units 04:36 Triglycerides 175 H (<150) mg/dL Cholesterol 163 (<200) mg/dL HDL Cholesterol 39 L (40-60) mg/dL CBC 12/10/19 12/11/19 Range/Units 14:42 04:48 WBC 9.7 8.9 (3.8-10.6) k/uL RBC 5.05 4.68 (3.80-5.40) m/uL Hgb 15.2 14.0 (11.4-16.0) gm/dL Hct 44.4 40.8 (34.0-46.0) % Plt Count 258 232 (150-450) k/uL Comprehensive Metabolic Panel 12/10/19 12/11/19 Range/Units 14:42 04:36 Sodium 136 L 137 (137-145) mmol/L Potassium 3.7 3.8 (3.5-5.1) mmol/L Chloride 99 104 (98-107) mmol/L Carbon Dioxide 27 28 (22-30) mmol/L BUN 22 H 15 (7-17) mg/dL Creatinine 0.79 0.68 (0.52-1.04) mg/dL Glucose 180 H 101 H (74-99) mg/dL Calcium 9.7 9.0 (8.4-10.2) mg/dL AST 82 H (14-36) U/L ALT 22 (4-34) U/L Alkaline Phosphatase 65 (38-126) U/L Total Protein 7.3 (6.3-8.2) g/dL Albumin 4.3 (3.5-5.0) g/dL Current Medications Generic Name Dose Route Start Last Admin Trade Name Freq PRN Reason Stop Dose Admin Acetaminophen 650 mg 12/10/19 17:44 Tylenol Tab PO Q6HR PRN Mild Pain or Fever > 100.5 Al Hydroxide/Mg Hydroxide 30 ml 12/10/19 16:08 Maalox PO Q4HR PRN Heartburn Aspirin 81 mg 12/11/19 09:00 Aspirin PO DAILY [facility] Atorvastatin Calcium 80 mg 12/11/19 21:00 Lipitor PO HS [facility] Atropine Sulfate 0.5 mg 12/10/19 16:08 Atropine IV ONCE PRN Symptomatic Bradycardia Bisacodyl 5 mg 12/10/19 17:44 Dulcolax PO DAILY PRN Constipation Clopidogrel Bisulfate 75 mg 12/11/19 09:00 Plavix PO DAILY [facility] Heparin Sodium (Porcine) 0 unit 12/10/19 14:39 Heparin IV PER PROTOCOL PRN Low PTT Protocol Levothyroxine Sodium 125 mcg 12/11/19 06:30 12/11/19 06:27 Synthroid PO 125 mcg [email or web address] [facility] Administration Levothyroxine Sodium 187.5 mcg 12/13/19 06:30 Synthroid PO [email or web address] [facility] Lisinopril 2.5 mg 12/11/19 12:00 Zestril PO DAILY@1200 [facility] Melatonin 3 mg 12/10/19 17:44 Melatonin PO HS PRN Insomnia Metoprolol Tartrate 12.5 mg 12/10/19 21:00 12/10/19 19:54 Lopressor PO 12.5 mg BID DEBBIE Administration Miscellaneous Information 1 each 12/10/19 16:08 Rx Info: Iv Contrast Was Given MISCELLANE 12/12/19 16:08 DAILY PRN Per Protocol Miscellaneous Information 1 each 12/11/19 05:32 Potassium Per Protocol MISCELLANE DAILY PRN Per Protocol Protocol Naloxone HCl 0.2 mg 12/10/19 17:44 Narcan IV Q2M PRN Opioid Reversal Nitroglycerin 0.4 mg 12/10/19 14:40 Nitrostat SUBLINGUAL Q5M PRN Chest Pain Ondansetron HCl 4 mg 12/10/19 17:44 Zofran IVP Q8HR PRN Nausea And Vomiting Zolpidem Tartrate 5 mg 12/10/19 16:08 Ambien PO HS PRN Insomnia Intake and Output 12/10/19 12/11/19 12/11/19 22:59 06:59 14:59 Intake Total 648 150 Output Total 0 600 0 Balance 648 -450 0 Intake: IV 648 150 Sodium Chloride 0.9% 1, 525 150 000 ml @ 75 mls/hr IV . [id number] [facility] Rx#:[id number] Output: Urine 0 600 0 Other: # Voids 0 1 Weight 83.9 kg 12/11/19 04:48 12/11/19 04:36
[2019-12-11] MEDS: ASPIRIN 81 MG PO SCH (08:42)
[2019-12-11] MEDS: CLOPIDOGREL 75 MG TAB PO SCH (08:42)
[2019-12-11] MEDS: METOPROLOL TARTRATE 12.5 MG TAB PO SCH ×2 (08:42→19:57)
[2019-12-11] MEDS ORDERED: ASPIRIN 325 MG TAB PO SCH (09:00)
--- NOTE | 2019-12-11 11:00 | ECHOF ---
Referral Reason:STEMI MEASUREMENTS -------- HEIGHT: 170.2 cm WEIGHT: 81.6 kg BP: 124/67 RVIDd: 2.8 cm (< 3.3) IVSd: 1.3 cm (0.6 - 1.1) LVIDd: 4.8 cm (3.9 - 5.3) LVPWd: 1.3 cm (0.6 - 1.1) IVSs: 1.7 cm LVIDs: 3.6 cm LVPWs: 1.6 cm LA Diam: 3.3 cm (2.7 - 3.8) LAESV Index (A-L): 19.77 ml/m Ao Diam: 3.0 cm (2.0 - 3.7) AV Cusp: 2.0 cm (1.5 - 2.6) MV EXCURSION: 17.701 mm (> 18.000) MV EF SLOPE: 65 mm/s (70 - 150) EPSS: 0.4 cm MV E Titi: 0.44 m/s MV DecT: 316 ms MV A Titi: 1.02 m/s MV E/A Ratio: 0.43 FINDINGS -------- Sinus rhythm. This was a technically difficult study with suboptimal apical views. The left ventricular size is normal. There is mild concentric left ventricular hypertrophy. Overa ll left ventricular systolic function is mild-moderately impaired with, an EF between 40 - 45 %. Ap ical anterior LV wall motion is hypokinetic. Apical lateral LV wall motion is hypokinetic. Apic al inferior LV wall motion is hypokinetic. Apical septum LV wall motion is hypokinetic. The right ventricle is normal in size. Normal LA size by volume 22+/-6 ml/m2. The right atrium is normal in size. Lumason used Interatrial and interventricular septum intact. The aortic valve is trileaflet and appears structurally normal. The mitral valve is normal. Mild tricuspid regurgitation present. Right ventricular systolic pressure is normal at < 35 mmHg. Trace/mild (physiologic) pulmonic regurgitation. The aortic root size is normal. Normal inferior vena cava with normal inspiratory collapse consistent with estimated right atrial pre ssure of 5 mmHg. There is no pericardial effusion. CONCLUSIONS -------- 1. Sinus rhythm. 2. This was a technically difficult study with suboptimal apical views. 3. The left ventricular size is normal. 4. There is mild concentric left ventricular hypertrophy. 5. Overall left ventricular systolic function is mild-moderately impaired with, an EF between 40 - 45 %. 6. Apical anterior LV wall motion is hypokinetic. 7. Apical lateral LV wall motion is hypokinetic. 8. Apical inferior LV wall motion is hypokinetic. 9. Apical septum LV wall motion is hypokinetic. 10. Lumason used 11. The aortic valve is trileaflet and appears structurally normal. 12. Mild tricuspid regurgitation present. 13. Right ventricular systolic pressure is normal at < 35 mmHg. 14. Trace/mild (physiologic) pulmonic regurgitation. 15. There is no pericardial effusion. SHEET MUSIC SALESPERSON: Marizol Mortensen RDCS
--- NOTE | 2019-12-11 14:09 | P.PN ---
Subjective Progress Note Date: 12/11/19 Principal diagnosis: chest pain Patient is a 69-year-old female with a past medical history of high blood pressure, hypothyroidism, and obesity who presented to the hospital at direction of her primary care physician due to numbness and tingling in her arm and shortness of breath. On arrival to the ER she was noted to have ST segment elevation and a code STEMI was called. She was taken directly from the ER to the greens laborer and underwent successful stenting of critical lesion in the LAD. She was noted to have a troponin of 8, her laboratory analysis was otherwise unremarkable. She was started on aspirin, Plavix, lisinopril, and Lipitor. She was admitted to the ICU for further monitoring. Cholesterol profile unremarkable. Echo showed EF 40-45% with LV hypokanesis. Patient seen and examined at bedside. No chest pain, SOB, nausea, or numbness an d tingling. Objective - Vital Signs Vital signs: Vital Signs Temp 97.5 F L 12/11/19 12:00 Pulse 75 12/11/19 12:00 Resp 18 12/11/19 12:00 BP 123/64 12/11/19 12:00 Pulse Ox 96 12/11/19 12:00 Intake & Output 12/10/19 12/11/19 12/11/19 18:59 06:59 18:59 Intake Total 348 450 Output Total 0 600 0 Balance 348 -150 0 Weight 81.647 kg 83.9 kg Intake: IV 348 450 Sodium Chloride 0.9% 1, 225 450 000 ml @ 75 mls/hr IV . [id number] Rx#:[id number] Output: Urine 0 600 0 Other: Voiding Method Toilet # Voids 0 1 2 ABP, PAP, CO, CI - Last Documented Arterial Blood Pressure 152/69 - Exam General: non toxic, no distress, appears at stated age Derm: warm, dry Head: atraumatic, normocephalic, symmetric Eyes: EOMI, no lid lag, anicteric sclera Mouth: no lip lesion, mucus membranes moist Cardiovascular: S1S2 reg, no murmur, positive posterior tibial pulse bilateral, Lungs: CTA bilateral, no rhonchi, no rales , no accessory muscle use Abdominal: soft, nontender to palpation, no guarding, no appreciable organomegaly Ext: no gross muscle atrophy, no edema, no contractures Neuro: CN II-XI grossly intact, no focal neuro deficits Psych: Alert, oriented, appropriate affect - Labs CBC & Chem 7: 12/11/19 04:48 12/11/19 04:36 Labs: Abnormal Lab Results - Last 24 Hours (Table) 12/10/19 12/10/19 12/10/19 Range/Units 14:42 14:42 14:42 D-Dimer 0.65 H (<0.60) mg/L FEU Sodium 136 L (137-145) mmol/L BUN 22 H (7-17) mg/dL Glucose 180 H (74-99) mg/dL POC Glucose (mg/dL) (75-99) mg/dL Total Bilirubin 1.6 H (0.2-1.3) mg/dL AST 82 H (14-36) U/L Total Creatine Kinase 383 H (30-135) U/L CK-MB (CK-2) 22.9 H (0.0-2.4) ng/mL Troponin I 8.230 H* (0.000-0.034) ng/mL Triglycerides (<150) mg/dL HDL Cholesterol (40-60) mg/dL 12/10/19 12/10/19 12/10/19 Range/Units 16:12 17:59 20:41 D-Dimer (<0.60) mg/L FEU Sodium (137-145) mmol/L BUN (7-17) mg/dL Glucose (74-99) mg/dL POC Glucose (mg/dL) 152 H (75-99) mg/dL Total Bilirubin (0.2-1.3) mg/dL AST (14-36) U/L Total Creatine Kinase (30-135) U/L CK-MB (CK-2) (0.0-2.4) ng/mL Troponin I 30.600 H* 32.600 H* (0.000-0.034) ng/mL Triglycerides (<150) mg/dL HDL Cholesterol (40-60) mg/dL 12/11/19 Range/Units 04:36 D-Dimer (<0.60) mg/L FEU Sodium (137-145) mmol/L BUN (7-17) mg/dL Glucose 101 H (74-99) mg/dL POC Glucose (mg/dL) (75-99) mg/dL Total Bilirubin (0.2-1.3) mg/dL AST (14-36) U/L Total Creatine Kinase (30-135) U/L CK-MB (CK-2) (0.0-2.4) ng/mL Troponin I (0.000-0.034) ng/mL Triglycerides 175 H (<150) mg/dL HDL Cholesterol 39 L (40-60) mg/dL Assessment and Plan Assessment: Acute ST segment elevated myocardial infarction status post successful stenting of the LAD -Aspirin, Lipitor, Plavix, lisinopril, Lopressor -Telemetry -Cardiology recommendations -Lipid profile in normal limits Hypertension, controlled -Continue with lisinopril and Lopressor -Hold home triamterene hydrochlorothiazide and Norvasc -Follow blood pressures Ischemic cardiomyopathy with EF 40-45% - Continue with BB, ACEI - strict I and O - Daily weights - Cardio recs Hypothyroidism -Synthroid Obesity with BMI 28.2 -Outpatient structured weight loss DVT prophylaxis: SCDs Discussed with: Patient, nursing, Anticipated discharge date: 1-[address]: Home A total of 35 minutes was spent on the care of this complex patient more than 50% of the time was spent in counseling and care coordination.
[2019-12-11] MEDS ORDERED: ATORVASTATIN 80 MG TAB PO SCH (21:00)
[2019-12-12 05:13] LABS: Basophils # (A) 0.1 k/uL (0-0.2); Basophils % (A) 1 %; Eosinophils # (A) 0.2 k/uL (0-0.7); Eosinophils % (A) 2 %; HCT 40.6 % (34.0-46.0); HGB 13.2 gm/dL (11.4-16.0); Lymphocytes # (A) 2.2 k/uL (1.0-4.8); Lymphocytes % (A) 24 %; MCH 28.4 pg (25.0-35.0); MCHC 32.5 g/dL (31.0-37.0); MCV 87.4 fL (80.0-100.0); Mean Platelet Volume 8.1; Monocytes # (A) 0.6 k/uL (0-1.0); Monocytes % (A) 6 %; Neutrophils # (A) 5.8 k/uL (1.3-7.7); Neutrophils % (A) 65 %; Platelet Count 217 k/uL (150-450); RBC 4.64 m/uL (3.80-5.40); RDW 13.2 % (11.5-15.5)
[2019-12-12 05:25] LABS: African American GFR (CKD) >90 (>60 ml/min/1.73 sqM); Anion Gap 7 mmol/L; Blood Urea Nitrogen 16 mg/dL (7-17); Calcium 9.1 mg/dL (8.4-10.2); Carbon Dioxide 27 mmol/L (22-30); Chloride 102 mmol/L (98-107); Glucose 98 mg/dL (74-99); Non-African American GFR(CKD) 83 (>60 ml/min/1.73 sqM); Potassium 4.2 mmol/L (3.5-5.1); Sodium 136 mmol/L (137-145)
[2019-12-12] MEDS: LEVOTHYROXINE 125 MCG TAB PO SCH (06:48)
[2019-12-12] MEDS: CLOPIDOGREL 75 MG TAB PO SCH (07:56)
[2019-12-12] MEDS: METOPROLOL TARTRATE 12.5 MG TAB PO SCH (07:56)
[2019-12-12] MEDS: ASPIRIN 81 MG PO SCH (07:57)
[2019-12-12 10:36] VITALS: BMI 29.0
[2019-12-12 12:09] VITALS: BP 114/57; PULSE 61; RESP 15; TEMP 98.5
--- NOTE | 2019-12-12 15:49 | P.DS ---
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 On arrival to the ER she was noted to have ST segment elevation and a code STEMI was called. She was taken directly from the ER to the crown and bridge dental lab technician and underwent successful stenting of critical lesion in the LAD. She was noted to have a troponin of 8, her laboratory analysis was otherwise unremarkable. She was started on aspirin, Plavix, lisinopril, and Lipitor. She was admitted to the ICU for further monitoring. Cholesterol profile unremarkable. Echo showed EF 40-45% with LV hypokanesis. She continued to do well and was discharged home in stable condition. She will follow-up with Dr. Anderson on 12/[address] Grande next week. Patient seen and examined at bedside.No chest pain, SOB, nausea, light headedness, dizziness. Has been up and walking and doing well. Vital signs reviewed and stable. General: non toxic, no distress, appears at stated age Derm: warm, dry Head: atraumatic, normocephalic, symmetric Eyes: EOMI, no lid lag, anicteric sclera Mouth: no lip lesion, mucus membranes moist Cardiovascular: S1S2 reg, no murmur, positive posterior tibial pulse bilateral, Lungs: CTA bilateral, no rhonchi, no rales , no accessory muscle use Abdominal: soft, nontender to palpation, no guarding, no appreciable organomegaly Ext: no gross muscle atrophy, no edema, no contractures Neuro: CN II-XI grossly intact, no focal neuro deficits Psych: Alert, oriented, appropriate affect A total of 35 minutes of time were spent preparing this complex discharge summary . Patient Condition at Discharge: Stable Plan - Discharge Summary Discharge Rx Participant: Yes New Discharge Prescriptions: New Aspirin 81 mg PO DAILY #30 chew Atorvastatin [Lipitor] 80 mg PO HS #30 tab Metoprolol Tartrate [Lopressor] 12.5 mg PO BID #60 tab Nitroglycerin Sl Tabs [Nitrostat] 0.4 mg SUBLINGUAL Q5M PRN #15 tab PRN Reason: Chest Pain Clopidogrel [Plavix] 75 mg PO DAILY #30 tab lisinopriL [Zestril] 2.5 mg PO DAILY@1200 #30 tab Continue Levothyroxine Sodium [Synthroid] 187.5 mcg PO SUSA Levothyroxine Sodium [Synthroid] 125 mcg PO MOTUWETHFR Discontinued Triamterene-Hctz 37.5-25Mg [Maxzide 37.5-25] 1 tab PO DAILY amLODIPine [Norvasc] 10 mg PO DAILY Discharge Medication List Levothyroxine Sodium [Synthroid] 125 mcg PO MOTUWETHFR 12/10/19 [History] Levothyroxine Sodium [Synthroid] 187.5 mcg PO SUSA 12/10/19 [History] Aspirin 81 mg PO DAILY #30 chew 12/12/19 [Rx] Atorvastatin [Lipitor] 80 mg PO HS #30 tab 12/12/19 [Rx] Clopidogrel [Plavix] 75 mg PO DAILY #30 tab 12/12/19 [Rx] Metoprolol Tartrate [Lopressor] 12.5 mg PO BID #60 tab 12/12/19 [Rx] Nitroglycerin Sl Tabs [Nitrostat] 0.4 mg SUBLINGUAL Q5M PRN #15 tab 12/12/19 [Rx] lisinopriL [Zestril] 2.5 mg PO DAILY@1200 #30 tab 12/12/19 [Rx] Follow up Appointment(s)/Referral(s): Pernell Anderson MD [STAFF PHYSICIAN] - 12/18/19 3:15 pm John Grande MD [Primary Care Provider] - 1-2 days (Pt stated she was told office would call her, if not she will call them.) Patient Instructions/Handouts: *[facility]gery [facility] - After Heart Catheterization - Licensed Practical Nurse Instructor Instructions, Heart Attack (GEN), Coronary Artery Disease (GEN) Activity/Diet/Wound Care/Special Instructions: Activity: as tolerated No bending or lifting over 10 pounds for 1 week No driving for 1 week Diet: heart healthy Discharge Disposition: HOME SELF-CARE Plan of Treatment: Activity: as tolerated No lifting over 10 pounds, no driving for 1 week Diet: Heart healthy diet
[2019-12-13] MEDS ORDERED: LEVOTHYROXINE 125 MCG TAB PO SCH (06:30)
== END 2019-12-12 12:40 | disposition home or self-care (01) | DRG 247 ==
LOC: EC 14:18 → 2SICU 14:45
PROVIDERS: ADMIT Internal Medicine; ATTEND Internal Medicine
PROC: 027034Z Dilation of Coronary Artery, One Artery with Drug-eluting Intraluminal Device, Percutaneous Approach (ICD-10-PCS; principal; 2019-12-10 13:40)
PROC: B2111ZZ Fluoroscopy of Multiple Coronary Arteries using Low Osmolar Contrast (ICD-10-PCS; principal; 2019-12-10 13:40)
PROC: 4A023N7 Measurement of Cardiac Sampling and Pressure, Left Heart, Percutaneous Approach (ICD-10-PCS; principal; 2019-12-10 13:40)
DX: I21.09 ST elevation (STEMI) myocardial infarction involving other coronary artery of anterior wall (principal); I25.10 Atherosclerotic heart disease of native coronary artery without angina pectoris; Z11.59 Encounter for screening for other viral diseases; I10 Essential (primary) hypertension; E03.9 Hypothyroidism, unspecified; E66.9 Obesity, unspecified; G47.00 Insomnia, unspecified; R11.2 Nausea with vomiting, unspecified; I25.5 Ischemic cardiomyopathy; Z71.3 Dietary counseling and surveillance; Z68.29 Body mass index [BMI] 29.0-29.9, adult; Z79.890 Hormone replacement therapy; Z79.899 Other long term (current) drug therapy; Z87.19 Personal history of other diseases of the digestive system; Z90.49 Acquired absence of other specified parts of digestive tract; Z87.891 Personal history of nicotine dependence; Z82.49 Family history of ischemic heart disease and other diseases of the circulatory system
CPT/HCPCS: 80048; 80053; 80061; 82550; 82553; 83735; 83880; 84484; 85025; 85027; 85379; 85610; 85730; 93005; 93306; 93458; 96374; 99291

== ENCOUNTER → 2020-01-13 | Outpatient (CLI) | payer MEDICARE ==
[2020-01-13 18:55] LABS: African American GFR (CKD) 86.6 (60.0-200.0); Anion Gap 9.5 mmol/L (4.00-12.00); BUN/Creat Ratio 16.25 Ratio (12.00-20.00); Calcium 9.2 mg/dL (8.7-10.3); Carbon Dioxide 24.5 mmol/L (21.6-31.8); Non-African American GFR(CKD) 74.7 (60.0-200.0); Potassium 4.4 mmol/L (3.5-5.5)
== END | disposition home or self-care (01) ==
LOC: LABWHC1 09:04
PROVIDERS: ATTEND Physician Assistant
DX: I42.9 Cardiomyopathy, unspecified (principal)
CPT/HCPCS: 36415; 80048

== ENCOUNTER → 2020-02-18 | Outpatient (CLI) | payer MEDICARE ==
[2020-02-18 14:52] LABS: Chol/HDL Ratio 3.09; LDL Cholesterol,Calculated 50.2 mg/dL (0.0-131.0); VLDL Calculation 20.8 mg/dL (5.00-40.00)
== END | disposition home or self-care (01) ==
LOC: LABWHC1 07:08
PROVIDERS: ATTEND Physician Assistant
DX: I25.10 Atherosclerotic heart disease of native coronary artery without angina pectoris (principal)
CPT/HCPCS: 36415; 80061

== ENCOUNTER → 2021-03-03 | Outpatient (CLI) | payer MEDICARE ==
--- NOTE | 2021-03-03 10:57 | MM ---
Reason for exam: additional evaluation requested from prior study. Last mammogram was performed 1 year and 3 months ago. History: Patient is postmenopausal and had first child after 29. Stereotactic core biopsy of the right breast, November 2019. Physical Findings: Nurse did not find any significant physical abnormalities on exam. MG 3D Diag Mammo W/Cad BRANDAN Bilateral CC and MLO view(s) were taken. Prior study comparison: May 23, 2019, bilateral MG 3d screening mammo w/cad. April 02, 2017, bilateral MG 3d screening mammo w/cad. There are scattered fibroglandular densities. There are benign appearing round calcifications bilaterally. Previous mammotome biopsy in the right breast. There is chronic nodularity in the left breast. There is no discrete abnormality. These results were verbally communicated with the patient and result sheet given to the patient on 03/03/21. ASSESSMENT: Benign, BI-RAD 2 RECOMMENDATION: Routine screening mammogram of both breasts in 1 year.
== END | disposition home or self-care (01) ==
LOC: RADMAMWWP 07:44
PROVIDERS: ATTEND Internal Medicine
DX: R92.1 Mammographic calcification found on diagnostic imaging of breast (principal); N64.89 Other specified disorders of breast; Z78.0 Asymptomatic menopausal state
CPT/HCPCS: 77066; G0279; 77062

== ENCOUNTER 2021-07-27 08:17 | Observation (INO) | payer MEDICARE ==
[2021-07-27] MEDS ORDERED: ASPIRIN 81 MG PO STA (08:37)
--- NOTE | 2021-07-27 09:26 | XR ---
EXAMINATION TYPE: XR chest 2V DATE OF EXAM: 07/27/2021 COMPARISON: 10/10/2015 HISTORY: Shortness of breath TECHNIQUE: Frontal and lateral views of the chest are obtained. FINDINGS: Scattered senescent parenchymal changes noted. No evidence for infiltrate. Linear basilar atelectasis at the right lung base. Heart size is stable. Mediastinal structures are stable and grossly unremarkable. No evidence for hilar prominence. Degenerative changes dorsal spine. IMPRESSION: 1. Linear basilar atelectasis at the right lung base.
[2021-07-27 09:38] LABS: Calcium 9.6 mg/dL (8.4-10.2); Total Bilirubin 1.7 mg/dL (0.2-1.3)
[2021-07-27 09:45] LABS: Albumin 4.4 g/dL (3.5-5.0); Potassium 5.3 mmol/L (3.5-5.1); Total Protein 7.9 g/dL (6.3-8.2)
[2021-07-27 09:50] LABS: Basophils % (A) 1 %; Eosinophils # (A) 0.2 k/uL (0-0.7); Eosinophils % (A) 3 %; HCT 44.2 % (34.0-46.0); HGB 14.7 gm/dL (11.4-16.0); Lymphocytes # (A) 1.7 k/uL (1.0-4.8); Lymphocytes % (A) 25 %; MCH 30.4 pg (25.0-35.0); MCHC 33.2 g/dL (31.0-37.0); MCV 91.6 fL (80.0-100.0); Mean Platelet Volume 7.8; Monocytes # (A) 0.4 k/uL (0-1.0); Monocytes % (A) 6 %; Neutrophils # (A) 4.3 k/uL (1.3-7.7); Neutrophils % (A) 63 %; Platelet Count 189 k/uL (150-450); RBC 4.83 m/uL (3.80-5.40); RDW 12.9 % (11.5-15.5); WBC 6.8 k/uL (3.8-10.6)
[2021-07-27] MEDS ORDERED: NITROGLYCERIN SL TABS 0.4 MG TAB SUBLINGUAL PRN ×2 (11:42→15:50)
--- NOTE | 2021-07-27 11:42 | ED ---
Chest Pain HPI - General Chief Complaint: Chest Pain Stated Complaint: shoulder pain, SOB Time Seen by Provider: 07/27/21 08:25 Source: patient, family, RN notes reviewed Mode of arrival: wheelchair Limitations: no limitations - History of Present Illness Initial Comments: This is a 70-year-old female presents emergency Department chief complaint of chest pain, nausea. Patient states that she was taking out the trash this morning when she developed right-sided chest, shoulder pain, felt short of breath and very nauseated. Patient states that she has a history of [place] 2 years ago in which she had very similar symptoms. Patient states that she has been placed at that time. She states symptoms are improving at rest. Patient denies any abdominal pain has appears or chills. Patient offers no complaints. - Related Data Home Medications Medication Instructions Recorded Confirmed Levothyroxine Sodium [Synthroid] 125 mcg PO DAILY 12/10/19 07/27/21 Metoprolol Succinate (ER) [Toprol 25 mg PO DAILY 07/27/21 07/27/21 Xl] lisinopriL [Zestril] 10 mg PO HS 07/27/21 07/27/21 Previous Rx's Medication Instructions Recorded Aspirin 81 mg PO DAILY #30 chew 12/12/19 Atorvastatin [Lipitor] 80 mg PO HS #30 tab 12/12/19 Nitroglycerin Sl Tabs [Nitrostat] 0.4 mg SUBLINGUAL Q5M PRN #15 tab 12/12/19 Allergies Allergy/AdvReac Type Severity Reaction Status Date / Time No Known Allergies Allergy Verified 07/27/21 10:37 Review of Systems ROS Statement: Those systems with pertinent positive or pertinent negative responses have been documented in the HPI. ROS Other: All systems not noted in ROS Statement are negative. EKG Findings - EKG Comments: EKG Findings:: EKG performed at 8:32 sinus rhythm with a rate of 64 DE 184 QRS 114 QT/QTC 416/425 Past Medical History Past Medical History: Hypertension, Myocardial Infarction ([place]), Thyroid Disorder History of Any Multi-Drug Resistant Organisms: None Reported Past Surgical History: Appendectomy, Section, Heart Catheterization With Stent Additional Past Surgical History / Comment(s): BOWEL RESSECTION WITH APPENDICITIS Past Psychological History: No Psychological Hx Reported Smoking Status: Former smoker Past Alcohol Use History: Occasional Past Drug Use History: None Reported - Past Family History Father Family Medical History: Coronary Artery Disease (CAD) Mother Additional Family Medical History / Comment(s): heart disease General Exam Limitations: no limitations General appearance: alert, in no apparent distress Head exam: Present: atraumatic, normocephalic, normal inspection ENT exam: Present: normal exam, normal oropharynx, mucous membranes moist Neck exam: Present: normal inspection. Absent: tenderness, meningismus, lymphadenopathy Respiratory exam: Present: normal lung sounds bilaterally. Absent: respiratory distress, wheezes, rales, rhonchi, stridor Cardiovascular Exam: Present: regular rate, normal rhythm, normal heart sounds. Absent: systolic murmur, diastolic murmur, rubs, gallop, clicks GI/Abdominal exam: Present: soft, normal bowel sounds. Absent: distended, tenderness, guarding, rebound, rigid Course Vital Signs 07/27/21 07/27/21 08:20 11:30 Temperature 97.8 F 97.2 F L Pulse Rate 68 55 L Respiratory 18 18 Rate Blood Pressure 176/81 128/60 O2 Sat by Pulse 100 99 Oximetry Chest Pain [facility] Patient's workup was negative including EKG and chest x-ray and troponin at this time though patient's symptoms are consistent with prior ME. Patient will be admitted for cardiac rule out. Disposition Clinical Impression: Chest pain Disposition: ADMITTED IP TO THIS [facility] Referrals: Mendy Campos MD [Primary Care Provider] - 1-2 days
[2021-07-27 12:19] LABS: INR 0.9 (<1.2); Partial Thromboplastin Time 22.5 sec (22.0-30.0); Prothrombin Time 10.3 sec (9.0-12.0)
[2021-07-27] MEDS ORDERED: ONDANSETRON 4 MG/2 ML VIAL IVP PRN (15:46)
[2021-07-27] MEDS ORDERED: MELATONIN 3 MG TABLET PO PRN (15:46)
[2021-07-27] MEDS ORDERED: NALOXONE 0.4 MG/ML 1 ML VIAL IV PRN (15:46)
[2021-07-27] MEDS ORDERED: bisacodyL 5 MG TABLET.DR PO PRN (15:46)
[2021-07-27] MEDS ORDERED: HYDROmorphone 1 MG/ML 1 ML SYRINGE IVP PRN (15:46)
--- NOTE | 2021-07-27 16:04 | P.HPIM ---
History of Present Illness H&P Date: 07/27/21 Chief Complaint: Right shoulder pain with exertional dyspnea This is a 70-year-old female with past medical history significant for coronary disease status post stent in November 2019 presented to the emergency room with chief complaint of right-sided upper chest and shoulder pain, associated with nausea and exertional dyspnea. Patient states that she was taking out the trash this morning when she developed right-sided chest, shoulder pain, felt short of breath and very nauseated. Patient states that she has a history of [place] 2 years ago in which she had very similar symptoms. Patient states that she has been placed at that time. She states symptoms are improving at rest. Patient denies any abdominal pain has appears or chills. Review of Systems All 14 review of systems evaluated and all negative except for above. Past Medical History Past Medical History: Coronary Artery Disease (CAD), Hyperlipidemia, Hypertension, Myocardial Infarction ([place]), Thyroid Disorder Additional Past Medical History / Comment(s): 12/10/19 STEMI, hypothyroid. Last Myocardial Infarction Date:: 12/10/19 History of Any Multi-Drug Resistant Organisms: None Reported Past Surgical History: Appendectomy, Bowel Resection, Section, Heart Catheterization With Stent Additional Past Surgical History / Comment(s): Appendectomy/abscessed with bowel resection d/t colitis, colonoscopies, R breast benign biopsy, bilateral cataract removals/lens implants. Past Anesthesia/Blood Transfusion Reactions: No Reported Reaction Date of Last Stent Placement:: 12/10/19 Smoking Status: Former smoker - Past Family History Father Family Medical History: Coronary Artery Disease (CAD) Mother Family Medical History: Coronary Artery Disease (CAD) Additional Family Medical History / Comment(s): heart disease Medications and Allergies Home Medications Medication Instructions Recorded Confirmed Type Levothyroxine Sodium [Synthroid] 125 mcg PO DAILY 12/10/19 07/27/21 History Aspirin 81 mg PO DAILY #30 chew 12/12/19 07/27/21 Rx Atorvastatin [Lipitor] 80 mg PO HS #30 tab 12/12/19 07/27/21 Rx Nitroglycerin Sl Tabs [Nitrostat] 0.4 mg SUBLINGUAL Q5M PRN #15 tab 12/12/19 07/27/21 Rx Metoprolol Succinate (ER) [Toprol 25 mg PO DAILY 07/27/21 07/27/21 History Xl] lisinopriL [Zestril] 10 mg PO HS 07/27/21 07/27/21 History Allergies Allergy/AdvReac Type Severity Reaction Status Date / Time No Known Allergies Allergy Verified 07/27/21 10:37 Physical Exam Vitals: Vital Signs Temp Pulse Pulse Pulse Resp BP BP 07/27/21 14:38 97 F L 57 L 18 145/74 07/27/21 14:00 70 07/27/21 11:30 97.2 F L 55 L 18 128/60 07/27/21 08:20 97.8 F 68 18 176/81 Pulse Ox 07/27/21 14:38 98 07/27/21 14:00 07/27/21 11:30 99 07/27/21 08:20 100 Intake and Output 07/27/21 07/27/21 07/27/21 06:59 14:59 22:59 Intake Total 120 Balance 120 Intake: Oral 120 Other: # Voids 1 Weight 86.183 kg 86.183 kg General: non toxic, no distress, appears at stated age Derm: warm, dry Head: atraumatic, normocephalic, symmetric Eyes: EOMI, no lid lag, anicteric sclera Mouth: no lip lesion, mucus membranes moist Cardiovascular: S1S2 reg, no murmur, positive posterior tibial pulse bilateral, Lungs: CTA bilateral, no rhonchi, no rales , no accessory muscle use Abdominal: soft, nontender to palpation, no guarding, no appreciable organomegaly Ext: no gross muscle atrophy, no edema, no contractures Neuro: CN II-XI grossly intact, no focal neuro deficits Psych: Alert, oriented, appropriate affect Results CBC & Chem 7: 07/27/21 09:07 07/27/21 09:07 Labs: Abnormal Lab Results - Last 24 Hours (Table) 07/27/21 Range/Units 09:07 Potassium 5.3 H (3.5-5.1) mmol/L BUN 23 H (7-17) mg/dL Glucose 117 H (74-99) mg/dL Total Bilirubin 1.7 H (0.2-1.3) mg/dL AST 45 H (14-36) U/L Thrombosis Risk Factor Assmnt - Choose All That Apply Any of the Below Risk Factors Present?: Yes Each Factor Represents 1 point: Obesity (BMI >25) Other Risk Factors: Yes Each Risk Factor Represents 2 Points: Age 61-74 years Other congenital or acquired thrombophilia - If yes, enter type in comment: No Thrombosis Risk Factor Assessment Total Risk Factor Score: 3 Thrombosis Risk Factor Assessment Level: Moderate Risk Assessment and Plan Assessment: Assessment and plan: #Atypical chest pain -Patient presenting with right shoulder pain and exertional dyspnea with nausea -EKG is nonspecific -Troponin negative 2 -Echo ordered pending result -Cardiology consulted -KG normal sinus rhythm with nonspecific EKG changes -Check d-dimer. -Resume aspirin and beta blockers -Chek lipid panel and an A1c #History of coronary disease status post on November #Mild hyperkalemia -Hold ALOK inhibitor #Hypertension -Resume home medications
[2021-07-27] MEDS ORDERED: ATORVASTATIN 80 MG TAB PO SCH (21:00)
[2021-07-28] MEDS ORDERED: LEVOTHYROXINE 125 MCG TAB PO SCH (06:30)
[2021-07-28 07:36] VITALS: RESP 18
--- NOTE | 2021-07-28 07:51 | ECHOF ---
Referral Reason:chest pain MEASUREMENTS -------- HEIGHT: 170.2 cm WEIGHT: 86.2 kg BP: RVIDd: 2.9 cm (< 3.3) IVSd: 1.2 cm (0.6 - 1.1) LVIDd: 4.2 cm (3.9 - 5.3) LVPWd: 1.5 cm (0.6 - 1.1) IVSs: 1.5 cm LVIDs: 2.6 cm LVPWs: 1.4 cm LA Diam: 4.1 cm (2.7 - 3.8) LAESV Index (A-L): 26.59 ml/m Ao Diam: 2.8 cm (2.0 - 3.7) AV Cusp: 1.9 cm (1.5 - 2.6) LA Diam: 4.1 cm (2.7 - 3.8) MV EXCURSION: 15.271 mm (> 18.000) MV EF SLOPE: 61 mm/s (70 - 150) EPSS: 0.3 cm MV E Titi: 0.53 m/s MV DecT: 250 ms MV A Titi: 0.71 m/s MV E/A Ratio: 0.74 RAP: 5.00 mmHg RVSP: 14.10 mmHg FINDINGS -------- Sinus rhythm. This was a technically good study. The left ventricular size is normal. There is mild concentric left ventricular hypertrophy. Overa ll left ventricular systolic function is low-normal with, an EF between 50 - 55 %. The right ventricle is normal in size. Normal LA size by volume 22+/-6 ml/m2. The right atrial size is normal. There is mild aortic valve sclerosis. There is no evidence of aortic regurgitation. Mild mitral regurgitation is present. Mild tricuspid regurgitation present. Right ventricular systolic pressure is normal at < 35 mmHg. There is no pulmonic regurgitation present. There is no pericardial effusion. CONCLUSIONS -------- 1. The left ventricular size is normal. 2. There is mild concentric left ventricular hypertrophy. 3. Overall left ventricular systolic function is low-normal with, an EF between 50 - 55 %. 4. The right ventricle is normal in size. 5. Normal LA size by volume 22+/-6 ml/m2. 6. The right atrial size is normal. 7. There is mild aortic valve sclerosis. 8. Mild mitral regurgitation is present. 9. Mild tricuspid regurgitation present. 10. There is no pericardial effusion. FILENET P8 DEVELOPER: Taylor Reyez RDCS
[2021-07-28] MEDS ORDERED: SODIUM CHLORIDE 0.9% 1,000 ML IV SCH (08:00)
[2021-07-28] MEDS ORDERED: ASPIRIN 325 MG TAB PO SCH (09:00)
[2021-07-28] MEDS ORDERED: ENOXAPARIN 40 MG/0.4 ML SYRINGE SQ SCH (09:00)
[2021-07-28] MEDS ORDERED: ASPIRIN 81 MG PO SCH (09:00)
[2021-07-28] MEDS ORDERED: METOPROLOL SUCCINATE (ER) 25 MG TAB.ER.24H PO SCH (09:00)
[2021-07-28 10:35] LABS: Basophils # (A) 0.05 X 10*3/uL (0.00-0.10); Basophils % (A) 0.8 %; Eosinophils # (A) 0.18 X 10*3/uL (0.04-0.35); Eosinophils % (A) 2.9 %; HCT 43.3 % (37.2-46.3); Immature Grans, Automated 0.3 %; Lymphocytes # (A) 2.04 X 10*3/uL (0.90-5.00); Lymphocytes % (A) 32.9 %; MCH 29.4 pg (27.0-32.0); MCHC 32.3 g/dL (32.0-37.0); MCV 90.8 fL (80.0-97.0); Monocytes # (A) 0.45 X 10*3/uL (0.20-1.00); Monocytes % (A) 7.3 %; NRBC Per 100 WBC 0 /100 WBCS (0.0-0.0); Neutrophils # (A) 3.46 X 10*3/uL (1.80-7.70); Neutrophils % (A) 55.8 %; Platelet Count 190 X 10*3/uL (140-440); RBC 4.77 X 10*6/uL (4.10-5.20)
--- NOTE | 2021-07-28 10:53 | CONS ---
CONSULTATION HISTORY OF PRESENT ILLNESS: This is a 70-year-old lady with a history of CAD, hypertension, hypercholesterolemia. In November 2019, she presented with an anterior wall ST-elevation AL and underwent stenting of ostial and proximal LAD with a drug-eluting stent by Dr. Buenrostro. She follows with Dr. Anderson in the office. She has been doing fairly well and is quite active. She goes to [employer] and does a reasonable amount of physical activity on a daily basis. However, she came in yesterday mainly because of an episode of what she describes as a discomfort in the chest, associated with some nausea and she also felt a little bit of sweating. Most of the discomfort was actually on the right side of the chest and right shoulder and then she had some discomfort on the left side. All these symptoms have resolved. She is resting comfortably, has no symptoms at the time of my evaluation. Her 3 sets of troponins are normal. EKG revealed nonspecific ST changes without any acute findings with sinus mechanism. PAST MEDICAL HISTORY: 1. Acute anterior AL and PCI of ostial and proximal LAD in 2019. 2. Hypertension. 3. Hypothyroidism. ALLERGIES: None. MEDICATIONS: Metoprolol succinate, levothyroxine, Zestril, atorvastatin and aspirin. She is status post bowel resection and appendicitis in the past. PHYSICAL EXAMINATION: On examination, blood pressure is 130/70, pulse rate is about 60 per minute. HEENT unremarkable. Fundus was not examined by me. NECK is supple. No JVD. I do not hear a carotid bruit. There is no thyromegaly. HEART exam reveals S1, S2 heard normally. No rub, murmur or gallop. LUNGS are clear. ABDOMEN: Soft, nontender. Lower EXTREMITIES reveal palpable pulses. No edema. CENTRAL NERVOUS SYSTEM is normal. EKG revealed sinus mechanism, nonspecific ST abnormality. IMPRESSION: 1. Atypical chest pain in a patient with known previous myocardial infarction and PCI. 2. Hypertension. 3. Hyperlipidemia. 4. Hypothyroidism. RECOMMENDATIONS: I am recommending that we will increase activity. Start her on 0.9 saline 100 mL/hour normal saline and proceed with a stress echo and if this is normal she can be discharged. We will also check a thyroid function test as well. Discussed my thoughts in detail with the patient. Thank you very much for the consult. MMODL / IJN: [id number] /
[2021-07-28 10:59] LABS: ALT 27 U/L (8-44); AST 34 U/L (13-35); Albumin 4.3 g/dL (3.8-4.9); Albumin/Globulin Ratio 1.54 (1.60-3.17); Alkaline Phosphatase 56 U/L (41-126); BUN/Creat Ratio 18.38 Ratio (12.00-20.00); Blood Urea Nitrogen 14.7 mg/dL (9.0-27.0); Calcium 9.7 mg/dL (8.7-10.3); Carbon Dioxide 23.9 mmol/L (20.0-27.5); Chloride 105 mmol/L (96-109); Chol/HDL Ratio 2.29 Ratio; Globulin 2.8 g/dL (1.6-3.3); Glucose 91 mg/dL (70-110); LDL Cholesterol,Calculated 45.9 mg/dL (0.0-131.0); Magnesium 2.1 mg/dL (1.5-2.4); Non-African American GFR(CKD) 74.2 (60.0-200.0); Potassium 4.4 mmol/L (3.5-5.5); Sodium 141 mmol/L (135-145); Total Protein 7.1 g/dL (6.2-8.2)
--- NOTE | 2021-07-28 13:39 | CT ---
EXAMINATION TYPE: CT chest angio for PE DATE OF EXAM: 07/28/2021 COMPARISON: No previous CT scan is available for comparison. HISTORY: Chest pain with dyspnea. CT DLP: 299 mGy.cm. Automated Exposure Control for Dose Reduction was Utilized. TECHNIQUE AND CONTRAST: CTA scan of the thorax is performed with IV Contrast, patient injected with 100 mL of Isovue 370, pul [facility] angiogram protocol. MIP Images are created on CT scanner and reviewed. FINDINGS: No definite filling defect within the pulmonary trunk, main pulmonary arteries, lobar, segmental and proximal subsegmental branches to suggest pulmonary embolism. Distal subsegmental branches are subopt imally assessed. The pulmonary trunk measures 2.6 cm. Slightly dilated left atrium. Arterial and alissa nary atherosclerotic calcifications. Minimal bilateral basal linear pulmonary atelectasis. Bilateral lower lobe dependent densities and po sterior reticulations. Unremarkable lungs otherwise. Patent central airways. No pleural or pericardia l effusion. Small thyroid gland. No pathologically enlarged lymph nodes in the chest. 2 mm calculus is seen within the gallbladder neck. No evidence of acute cholecystitis. Bulky spleen, please correlate clinically. Osteopenia. Degenerative changes of the lower cervical spine and the low er thoracic spine as well as glenohumeral articulations. IMPRESSION: No evidence of pulmonary embolism. No significant acute pulmonary abnormality identified. Incidental findings as described above.
[2021-07-28 14:06] VITALS: BP 157/79; PULSE 75; TEMP 98
--- NOTE | 2021-07-28 14:23 | ECHOS ---
STRESS ECHOCARDIOGRAM INDICATIONS: Chest pain BASELINE HEART RATE: 66 BASELINE BLOOD PRESSURE: 170/65. MAXIMUM HEART RATE: 154 MAXIMUM BLOOD PRESSURE: 216/64 85% MPHR: 127 100% MPHR: 149 METS: 5.9 MAXIMUM STAGE REACHED: II TOTAL EXERCISE TIME: 6:00 RESULTS: Baseline EKG revealed normal sinus rhythm with nonspecific ST abnormality and voltage criteria for LVH and voltage criteria for LVH. Patient walked on a standard Mika protocol for a total duration of 6 minutes, achieved a maximal heart rate of 154 beats per minute which is well above 85% of predicted maximal. She developed fatigue and shortness of breath. She had rare PVCs. There was no evidence of any angina. EKG remained inconclusive, but there was no new significant EKG changes. Because of resting EKG changes, this is considered an inconclusive stress test with limited exercise capacity, but no anginal symptoms. Baseline echo images revealed normal wall motion and wall thickening of all segments. At peak exercise there was good augmentation of different wall motion wall thickening of all segments, suggesting that there is no evidence of any stress-induced ischemia on this study. FINAL IMPRESSION: 1. Limited exercise capacity with inconclusive stress test by EKG criteria because of resting EKG changes. 2. Normal stress echocardiogram without evidence of ischemia at a heart rate of 154 beats per minute. MMODL / IJN: [id number] /
--- NOTE | 2021-07-28 15:39 | P.DS ---
Providers Date of admission: 07/27/21 11:47 Expected date of discharge: 07/28/21 Attending physician: Billie Currie DO Consults: Cardiology Primary care physician: Mendy Campos MD Hospital Course: H&P Date: 07/27/21 Chief Complaint: Right shoulder pain with exertional dyspnea This is a 70-year-old female with past medical history significant for coronary disease status post stent in November 2019 presented to the emergency room with chief complaint of right-sided upper chest and shoulder pain, associated with nausea and exertional dyspnea. Patient states that she was taking out the trash this morning when she developed right-sided chest, shoulder pain, felt short of breath and very nauseated. Patient states that she has a history of NM 2 years ago in which she had very similar symptoms. Patient states that she has been placed at that time. She states symptoms are improving at rest. Patient denies any abdominal pain has appears or chills. Hospital course and his problem list: #Atypical chest pain -Acute coronary syndrome has been ruled out -Patient presenting with right shoulder pain and exertional dyspnea with nausea -EKG is nonspecific -Troponin negative 3 -Echo showed normal left ventricular size. Mild concentric left ventricular hypertrophy. EF 50-55%. Mild aortic valve sclerosis. -Cardiology ordered echocardiogram stress test which came back normal without evidence of ischemia. -CTA of the chest was negative for PE -Resume aspirin and beta blockers #Overtreated hypothyroidism -TSH came back low at 0.314 -Decrease levothyroxine to 112 g from 125 g -For PCP to repeat thyroid studies in 4-6 weeks #History of coronary disease status post on November stent to proximal LAD 2019 #Mild hyperkalemia -Resolved #Hypertension -Resume home medications Time spent in discharge process 35 minutes Physical examination on discharge: General: non toxic, no distress, appears at stated age Derm: warm, dry Head: atraumatic, normocephalic, symmetric Eyes: EOMI, no lid lag, anicteric sclera Mouth: no lip lesion, mucus membranes moist Cardiovascular: S1S2 reg, no murmur, positive posterior tibial pulse bilateral, Lungs: CTA bilateral, no rhonchi, no rales , no accessory muscle use Abdominal: soft, nontender to palpation, no guarding, no appreciable organomegaly Ext: no gross muscle atrophy, no edema, no contractures Neuro: CN II-XI grossly intact, no focal neuro deficits Psych: Alert, oriented, appropriate affect Patient Condition at Discharge: Stable Plan - Discharge Summary Discharge Rx Participant: No New Discharge Prescriptions: Continue Levothyroxine Sodium [Synthroid] 125 mcg PO DAILY Aspirin 81 mg PO DAILY #30 chew Atorvastatin [Lipitor] 80 mg PO HS #30 tab Nitroglycerin Sl Tabs [Nitrostat] 0.4 mg SUBLINGUAL Q5M PRN #15 tab PRN Reason: Chest Pain lisinopriL [Zestril] 10 mg PO HS Metoprolol Succinate (ER) [Toprol XL] 25 mg PO DAILY Discharge Medication List Levothyroxine Sodium [Synthroid] 125 mcg PO DAILY 12/10/19 [History] Aspirin 81 mg PO DAILY #30 chew 12/12/19 [Rx] Atorvastatin [Lipitor] 80 mg PO HS #30 tab 12/12/19 [Rx] Nitroglycerin Sl Tabs [Nitrostat] 0.4 mg SUBLINGUAL Q5M PRN #15 tab 12/12/19 [Rx] Metoprolol Succinate (ER) [Toprol XL] 25 mg PO DAILY 07/27/21 [History] lisinopriL [Zestril] 10 mg PO HS 07/27/21 [History] Follow up Appointment(s)/Referral(s): Mendy Campos MD [Primary Care Provider] - 1-2 days Discharge Disposition: HOME SELF-CARE
== END 2021-07-28 17:33 | disposition home or self-care (01) ==
LOC: EC 08:17 → 6NMEDSUR 11:47
PROVIDERS: ADMIT Internal Medicine; ATTEND Internal Medicine
DX: R07.89 Other chest pain (principal); E87.5 Hyperkalemia; R06.09 Other forms of dyspnea; R11.0 Nausea; R61 Generalized hyperhidrosis; M25.511 Pain in right shoulder; I11.9 Hypertensive heart disease without heart failure; E03.9 Hypothyroidism, unspecified; E78.5 Hyperlipidemia, unspecified; E78.00 Pure hypercholesterolemia, unspecified; I25.10 Atherosclerotic heart disease of native coronary artery without angina pectoris; I08.3 Combined rheumatic disorders of mitral, aortic and tricuspid valves; E66.9 Obesity, unspecified; Z68.29 Body mass index [BMI] 29.0-29.9, adult; Z79.82 Long term (current) use of aspirin; Z79.899 Other long term (current) drug therapy; Z79.890 Hormone replacement therapy; I25.2 Old myocardial infarction; Z90.49 Acquired absence of other specified parts of digestive tract; Z98.891 History of uterine scar from previous surgery; Z95.5 Presence of coronary angioplasty implant and graft; Z87.891 Personal history of nicotine dependence; Z98.42 Cataract extraction status, left eye; Z98.41 Cataract extraction status, right eye; Z96.1 Presence of intraocular lens; Z98.890 Other specified postprocedural states; Z82.49 Family history of ischemic heart disease and other diseases of the circulatory system
CPT/HCPCS: 99285; 36415; 93005; 93306; 93351; 85379; 84439; 83880; 80061; 80053 ×2; 84443; 83690; 83735 ×2; 84484; 85025 ×2; 85610; 85730; 83036; 71046; 71275; G0378 ×2; J1650; Q9967

== ENCOUNTER → 2022-03-24 | Outpatient (CLI) | payer MEDICARE ==
[2022-03-24 11:04] LABS: Basophils # (A) 0.05 X 10*3/uL (0.00-0.10); Basophils % (A) 0.8 %; Eosinophils # (A) 0.16 X 10*3/uL (0.04-0.35); Eosinophils % (A) 2.4 %; HCT 41.2 % (37.2-46.3); HGB 13.2 g/dL (12.0-15.0); Immature Grans, Automated 0.2 %; Lymphocytes # (A) 1.99 X 10*3/uL (0.90-5.00); Lymphocytes % (A) 30.1 %; MCH 29.1 pg (27.0-32.0); MCV 90.9 fL (80.0-97.0); Mean Platelet Volume 10.4 fL (9.5-12.2); Monocytes % (A) 7.6 %; NRBC Per 100 WBC 0 /100 WBCS (0.0-0.0); Neutrophils % (A) 58.9 %; Platelet Count 229 X 10*3/uL (140-440); RBC 4.53 X 10*6/uL (4.10-5.20); WBC 6.61 X 10*3/uL (4.50-10.00)
[2022-03-24 11:18] LABS: ALT 17 U/L (8-44); AST 18 U/L (13-35); African American GFR (CKD) 85.4 (60.0-200.0); Albumin 4.4 g/dL (3.8-4.9); Albumin/Globulin Ratio 1.47 (1.60-3.17); Alkaline Phosphatase 48 U/L (41-126); BUN/Creat Ratio 25.88 Ratio (12.00-20.00); Blood Urea Nitrogen 20.7 mg/dL (9.0-27.0); Calcium 9.8 mg/dL (8.7-10.3); Chloride 103 mmol/L (96-109); Chol/HDL Ratio 2.55 Ratio; Glucose 106 mg/dL (70-110); LDL Cholesterol,Calculated 34.9 mg/dL (0.0-131.0); Non-African American GFR(CKD) 73.7 (60.0-200.0); Potassium 4.5 mmol/L (3.5-5.5); Sodium 140 mmol/L (135-145); Total Protein 7.4 g/dL (6.2-8.2)
== END | disposition home or self-care (01) ==
LOC: LABWHC1 06:57
PROVIDERS: ATTEND Internal Medicine
DX: E78.5 Hyperlipidemia, unspecified (principal); E03.9 Hypothyroidism, unspecified
CPT/HCPCS: 36415; 80053; 80061; 84439; 84443; 85025

== ENCOUNTER → 2022-03-31 | Outpatient (CLI) | payer MEDICARE ==
--- NOTE | 2022-03-31 09:46 | BD ---
EXAMINATION TYPE: Axial Bone Density DATE OF EXAM: 03/31/2022 COMPARISON: 12/02/2019 CLINICAL HISTORY: 71 years year old Female. ICD-10 CODE: Z13.820 Screening for osteoporosis Height: 66.2 IN Weight: 191 LBS RISK FACTORS HISTORY OF: Active: YES Postmenopausal woman: AGE 51 Lost more than 2 inches in height since high school: YES 3 " MEDICATIONS: Thyroid Medications: YES Which medication: Levothyroxine How Lon+ YEARS Additional Medications: CALCIUM, LEVOTHYROXINE, HEART MEDS, EXAM MEASUREMENTS: Bone mineral densitometry was performed using the [employer] System. Bone mineral density as measured about the Lumbar spine is: ----- L1-L4(G/cm2): 1.286 T Score Values are as follows: ----- L1: -0.9 ----- L2: 1.0 ----- L3: 1.8 ----- L4: 1.1 ----- L1-L4: 1.9 Bone mineral density has: Increased 3.1% since study of: 12/02/2019 Bone mineral density about the R hip (g/cm2): 0.831 Bone mineral density about the L hip (g/cm2): 0.816 T Score values are as follows: -----R Neck: -1.5 -----L Neck: -1.6 -----R Total: -0.7 -----L Total: -0.5 Bone mineral density has: Decreased -1.2% since study of: 12/02/2019 FRAX%s: The graph provided illustrates a 10.6 chance for a major osteoporotic fx and a 1.8 chance for the hips probability for fx in 10 years time. IMPRESSION: Normal (Values between +1 and -1 indicate normal bone mass). Consider repeating this study in 5 year s or sooner if there is some new clinical indication. NOTE: T-SCORE=SD OF THE YOUNG ADULT MEAN.
--- NOTE | 2022-04-03 07:34 | MM ---
Reason for Exam: Screening (asymptomatic). Last mammogram was performed 1 year(s) and 1 month(s) ago. Patient History: Menarche at age 11. Postmenopausal. 11/2019, Stereotactic Core Biopsy on the Right side. Risk Values: Brittany 5 year model risk: 1.5%. NCI Lifetime model risk: 3.9%. Prior Study Comparison: 06/04/2019 Right Diagnostic Mammogram, [facility]. 11/19/2019 Right Diagnostic Mammogram, [facility]. 03/03/2021 Bilateral Diagnostic Mammogram, [facility]. Tissue Density: There are scattered fibroglandular densities. Findings: Analyzed By CAD. Mammotome biopsy clip in the right breast is redemonstrated. There are some grouped benign-appearing round calcifications in the left breast redemonstrated anteriorly. There is no suspicious group of microcalcifications or new suspicious mass in either breast. Overall Assessment: Benign, BI-RAD 2 Management: Screening Mammogram of both breasts in 1 year. A clinical breast exam by your physician is recommended on an annual basis and results should be correlated with mammographic findings. Electronically signed and approved by: Rashel Raza M.D.
== END | disposition home or self-care (01) ==
LOC: RADMAMWWP 07:00
PROVIDERS: ATTEND Internal Medicine
DX: Z12.31 Encounter for screening mammogram for malignant neoplasm of breast (principal); Z13.820 Encounter for screening for osteoporosis; Z78.0 Asymptomatic menopausal state
CPT/HCPCS: 77063; 77067; 77080

== ENCOUNTER → 2022-09-22 | Outpatient (CLI) | payer MEDICARE ==
[2022-09-22 11:33] LABS: African American GFR (CKD) 74.4 (60.0-200.0); Anion Gap 10.4 mmol/L (10.00-18.00); BUN/Creat Ratio 25.81 Ratio (12.00-20.00); Non-African American GFR(CKD) 64.2 (60.0-200.0); Potassium 4.8 mmol/L (3.5-5.5); T4, Free (Free Thyroxine) 1.45 ng/dL (0.800-1.800)
== END | disposition home or self-care (01) ==
LOC: LABWHC1 07:09
PROVIDERS: ATTEND Internal Medicine
DX: I10 Essential (primary) hypertension (principal); E03.9 Hypothyroidism, unspecified
CPT/HCPCS: 36415; 80048; 84439; 84443

== ENCOUNTER → 2023-08-27 | Outpatient (CLI) | payer MEDICARE ==
--- NOTE | 2023-08-28 12:41 | MM ---
Reason for Exam: Screening (asymptomatic). Last mammogram was performed 1 year(s) and 5 month(s) ago. Patient History: Menarche at age 11. Postmenopausal. 11/2019, Stereotactic Core Biopsy on the Right side. Risk Values: Brittany 5 year model risk: 1.5%. NCI Lifetime model risk: 3.7%. Prior Study Comparison: 11/19/2019 Right Diagnostic Mammogram, [facility]. 03/03/2021 Bilateral Diagnostic Mammogram, [facility]. 03/31/2022 Bilateral MG 3D screening mammo w/cad, [facility]. Tissue Density: The breasts are heterogeneously dense, which may obscure small masses. Findings: Analyzed By CAD. There is no suspicious group of microcalcifications or new suspicious mass in either breast. Overall Assessment: Benign, BI-RAD 2 Management: Screening Mammogram of both breasts in 1 year. . Patient should continue monthly self-breast exams. A clinical breast exam by your physician is recommended on an annual basis. This exam should not preclude additional follow-up of suspicious palpable abnormalities. Note on Brittany scores and lifetime risk: 1. A Brittany score greater than 3% is considered moderate risk. If this is the case, consider specialist referral to assess eligibility for a risk reducing agent. 2. If overall lifetime risk for the development of breast cancer is 20% or higher, the patient may qualify for future screening with alternating mammogram and breast MRI. Electronically signed and approved by: Nazario Mueller M.D. Radiologis
== END | disposition home or self-care (01) ==
LOC: RADMAMWWP 07:25
PROVIDERS: ATTEND Internal Medicine
DX: Z12.31 Encounter for screening mammogram for malignant neoplasm of breast (principal); Z78.0 Asymptomatic menopausal state
CPT/HCPCS: 77063; 77067

== ENCOUNTER 2024-12-10 09:07 | Emergency (ER) | payer MEDICARE ==
[2024-12-10 10:23] VITALS: RESP 16
[2024-12-10] MEDS: ASPIRIN 81 MG PO STA (10:23)
[2024-12-10 10:36] LABS: Basophils # (A) 0.04 10*3/uL (0.00-0.10); Basophils % (A) 0.6 %; Eosinophils # (A) 0.18 10*3/uL (0.04-0.35); Eosinophils % (A) 2.7 %; HCT 38.1 % (37.2-46.3); HGB 12.8 g/dL (12.0-15.0); Lymphocytes # (A) 1.51 10*3/uL (0.90-5.00); Lymphocytes % (A) 22.8 %; MCH 29.8 pg (27.0-32.0); MCHC 33.6 g/dL (32.0-37.0); MCV 88.6 fL (80.0-97.0); Monocytes # (A) 0.48 10*3/uL (0.20-1.00); Monocytes % (A) 7.3 %; Neutrophils # (A) 4.40 10*3/uL (1.80-7.70); Neutrophils % (A) 66.4 %; Platelet Count 209 10*3/uL (140-440); RBC 4.30 10*6/uL (4.10-5.20); RDW 12.5 % (11.5-14.5); WBC 6.62 10*3/uL (4.50-10.00)
--- NOTE | 2024-12-10 10:43 | ED ---
Chest Pain HPI - General Chief Complaint: Chest Pain Stated Complaint: SHERRON/Facial Numbness Time Seen by Provider: 12/10/24 09:25 Source: patient, family Mode of arrival: ambulatory Limitations: no limitations - History of Present Illness Initial Comments: 74-year-old female presents to the emergency department with complaint of chest pressure and numbness to her lips. States that symptoms started this morning. She does have history of similar symptoms in the past when she was diagnosed with an TN. Patient denies any shortness of breath. No fevers, chills or cough. Pain is gone at this time. Patient does have history of hypertension and hyperlipidemia. She did not take anything to make her pain go away. No other alleviating, precipitating or modifying factors - Related Data Home Medications Medication Instructions Recorded Confirmed Metoprolol Succinate (ER) [Toprol 25 mg PO DAILY 07/27/21 07/27/21 XL] lisinopriL [Zestril] 10 mg PO HS 07/27/21 07/27/21 Previous Rx's Medication Instructions Recorded Aspirin 81 mg PO DAILY #30 chew 12/12/19 Atorvastatin [Lipitor] 80 mg PO HS #30 tab 12/12/19 Nitroglycerin Sl Tabs [Nitrostat] 0.4 mg SUBLINGUAL Q5M PRN #15 tab 12/12/19 Levothyroxine Sodium 112 mcg PO DAILY 30 Days #30 tablet 07/28/21 Allergies Allergy/AdvReac Type Severity Reaction Status Date / Time No Known Allergies Allergy Verified 12/10/24 09:13 Review of Systems ROS Statement: Those systems with pertinent positive or pertinent negative responses have been documented in the HPI. ROS Other: All systems not noted in ROS Statement are negative. Past Medical History Past Medical History: Coronary Artery Disease (CAD), Hyperlipidemia, Hypertension, Myocardial Infarction (TN), Thyroid Disorder Additional Past Medical History / Comment(s): 12/10/19 STEMI, hypothyroid. Last Myocardial Infarction Date:: 12/10/19 History of Any Multi-Drug Resistant Organisms: None Reported Past Surgical History: Appendectomy, Bowel Resection, Section, Heart Catheterization With Stent Additional Past Surgical History / Comment(s): Appendectomy/abscessed with bowel resection d/t colitis, colonoscopies, R breast benign biopsy, bilateral cataract removals/lens implants. Past Anesthesia/Blood Transfusion Reactions: No Reported Reaction Date of Last Stent Placement:: 12/10/19 Past Psychological History: No Psychological Hx Reported Smoking Status: Former smoker Past Alcohol Use History: Daily Past Drug Use History: None Reported - Past Family History Father Family Medical History: Coronary Artery Disease (CAD) Mother Family Medical History: Coronary Artery Disease (CAD) Additional Family Medical History / Comment(s): heart disease General Exam Limitations: no limitations General appearance: alert, in no apparent distress Head exam: Present: atraumatic, normocephalic, normal inspection Eye exam: Present: normal appearance, PERRL, EOMI. Absent: scleral icterus, conjunctival injection, periorbital swelling ENT exam: Present: normal exam, mucous membranes moist Neck exam: Present: normal inspection. Absent: tenderness, meningismus, lymphadenopathy Respiratory exam: Present: normal lung sounds bilaterally. Absent: respiratory distress, wheezes, rales, rhonchi, stridor Cardiovascular Exam: Present: regular rate, normal rhythm, normal heart sounds. Absent: systolic murmur, diastolic murmur, rubs, gallop, clicks GI/Abdominal exam: Present: soft, normal bowel sounds. Absent: distended, tenderness, guarding, rebound, rigid Extremities exam: Present: normal inspection, full ROM, normal capillary refill. Absent: tenderness, pedal edema, joint swelling, calf tenderness Back exam: Present: normal inspection Neurological exam: Present: alert, oriented X3, CN II-XII intact Psychiatric exam: Present: normal affect, normal mood Skin exam: Present: warm, dry, intact, normal color. Absent: rash Course Vital Signs 12/10/24 12/10/24 12/10/24 09:11 10:23 11:00 Temperature Pulse Rate 80 61 50 L Respiratory 18 16 16 Rate Blood Pressure 190/97 163/77 147/69 O2 Sat by Pulse 99 Oximetry 12/10/24 12:10 Temperature 98 F Pulse Rate 58 L Respiratory 16 Rate Blood Pressure 148/78 O2 Sat by Pulse 98 Oximetry Chest Pain MDM - MDM Was pt. sent in by a medical professional or institution (, PA, VISUAL DESIGN LEAD, urgent care, hospital, or prison...) When possible be specific @ -No Did you speak to anyone other than the patient for history (EMS, parent, family, police, friend...)? What history was obtained from this source @ -No Did you review nursing and triage notes (agree or disagree)? Why? @ -I reviewed and agree with nursing and triage notes Were old charts reviewed (outside hosp., previous admission, EMS record, old EKG, old radiological studies, urgent care reports/EKG's, prison records)? Report findings @ -No old charts were reviewed Differential Diagnosis (chest pain, altered mental status, abdominal pain women, abdominal pain men, vaginal bleeding, weakness, fever, dyspnea, syncope, headache, dizziness, GI bleed, back pain, seizure, CVA, palpatations, mental health, musculoskeletal)? @ -Differential Chest Pain: Stable Angina, Unstable Angina, STEMI, NSTEMI Aortic Dissection, Pneumothorax, Musculoskeletal, Esophageal Spasm GERD, Cholecystitis, Pancreatitis, Zoster, this is not meant to be an all-inclusive list. EKG interpreted by me (3pts min.). @ -Yes which demonstrates sinus rhythm with rate of 67. [place] interval 203. QRS 95. QTc of 427. No acute ST segment elevations or depressions X-rays interpreted by me (1pt min.). @ -Yes which demonstrates no acute process CT interpreted by me (1pt min.). @ -None done U/S interpreted by me (1pt. min.). @ -None done What testing was considered but not performed or refused? (CT, X-rays, U/S, labs)? Why? @ -Serial troponins and echo however patient does not want to be admitted What meds were considered but not given or refused? Why? @ -None Did you discuss the management of the patient with other professionals (professionals i.e. , PA, VISUAL DESIGN LEAD, lab, RT, psych nurse, social organization professor, founder, teacher, detention officer, case management associate)? Give summary @ -No Was smoking cessation discussed for >3mins.? @ -No Was critical care preformed (if so, how long)? @ -No Were there social determinants of health that impacted care today? How? (Homelessness, low income, unemployed, alcoholism, drug addiction, transportation, low edu. Level, literacy, decrease access to med. care, long-term, rehab)? @ -No Was there de-escalation of care discussed even if they declined (Discuss DNR or withdrawal of care, Hospice)? DNR status @ -No What co-morbidities impacted this encounter? (DM, HTN, Smoking, COPD, CAD, Cancer, CVA, ARF, Chemo, Hep., AIDS, mental health diagnosis, sleep apnea, morbid obesity)? @ -Previous TN Was patient admitted / discharged? Hospital course, mention meds given and route, prescriptions, significant lab abnormalities, going to OR and other pertinent info. @ -Upon arrival patient seen and evaluated in room 12. Thorough history and physical exam was performed. IV was established and laboratory studies are conducted. Chest x-ray was performed. Her troponin is negative. I did recommend admission with serial troponins and echo. Patient refused and states that her pain only lasted a couple of seconds and she wants to go home. I did request a second troponin forts patient was agreeable. Second troponin performed and is negative. She will be discharged at this time. Instructed to follow-up with her primary care doctor in 2 to 4 days and return for any new or worsening symptoms Undiagnosed new problem with uncertain prognosis? @ -No Drug Therapy requiring intensive monitoring for toxicity (Heparin, Nitro, Insulin, Cardizem)? @ -No Were any procedures done? @ -No Diagnosis/symptom? @ -Acute chest pain, history of TN Acute, or Chronic, or Acute on Chronic? @ -Acute Uncomplicated (without systemic symptoms) or Complicated (systemic symptoms)? @ -Complicated Side effects of treatment? @ -No Exacerbation, Progression, or Severe Exacerbation? @ -No Poses a threat to life or bodily function? How? (Chest pain, [place], TN, pneumonia, PE, COPD, DKA, ARF, appy, cholecystitis, CVA, Diverticulitis, Homicidal, Suicidal, threat to staff... and all critical care pts) @ -No Disposition Clinical Impression: Chest pain Disposition: HOME SELF-CARE Condition: Stable Instructions (If sedation given, give patient instructions): Chest Pain (ED) Additional Instructions: Please follow-up with your heart doctor. Notify them that you had symptoms. Return to the emergency department for any new or worsening symptoms Is patient prescribed a controlled substance at d/c from ED?: No Referrals: Hermann Flower DO [Primary Care Provider] - 1-2 days Time of Disposition: 11:30
--- NOTE | 2024-12-10 10:44 | XR ---
EXAMINATION TYPE: XR chest 2V DATE OF EXAM: 12/10/2024 10:21 AM COMPARISON: 07/27/2021 CLINICAL INDICATION: Female, 74 years old with history of Chest Pain, TECHNIQUE: XR chest 2V view(s) obtained. FINDINGS: The heart size is normal. The pulmonary vasculature is normal. Minimal subsegmental atelectasis at the right base. Lungs otherwise appear clear. IMPRESSION: 1. Minimal subsegmental atelectasis right base. [facility], Workstation: [facility], 12/10/2024 10:42 AM
[2024-12-10 10:50] LABS: INR 1.0 (<1.2); Partial Thromboplastin Time 22.4 sec (22.0-30.0); Prothrombin Time 10.7 sec (10.0-12.5)
[2024-12-10 11:00] LABS: ALT 14 U/L (4-34); AST 21 U/L (14-36); African American GFR (CKD) 84 (>60 ml/min/1.73 sqM); Albumin 4.3 g/dL (3.5-5.0); Alkaline Phosphatase 43 U/L (38-126); Anion Gap 8 mmol/L; Blood Urea Nitrogen 29 mg/dL (7-17); Calcium 10.1 mg/dL (8.4-10.2); Carbon Dioxide 28 mmol/L (22-30); Chloride 103 mmol/L (98-107); Glucose 110 mg/dL (74-99); Magnesium 1.7 mg/dL (1.6-2.3); Non-African American GFR(CKD) 73 (>60 ml/min/1.73 sqM); Potassium 4.4 mmol/L (3.5-5.1); Sodium 139 mmol/L (137-145); Total Protein 7.0 g/dL (6.3-8.2)
[2024-12-10 11:07] LABS: NT-Pro-B-Type Natriuretic Pept 77 pg/mL
[2024-12-10 12:12] VITALS: BP 148/78; PULSE 58; TEMP 98
== END 2024-12-10 12:15 | disposition home or self-care (01) ==
LOC: EC 09:07
DX: R07.9 Chest pain, unspecified (principal); I10 Essential (primary) hypertension; E78.5 Hyperlipidemia, unspecified; I25.2 Old myocardial infarction; Z87.891 Personal history of nicotine dependence
CPT/HCPCS: 36415; 71046; 80053; 83735; 83880; 84484; 85025; 85610; 85730; 93005; 99285